=== PATIENT | female | born 1950 | race Caucasian/White ===

== ENCOUNTER 2016-08-06 07:30 | Inpatient (IN) | payer OTHER ==
[2016-07-30 11:06] VITALS: BP 122/86
--- NOTE | 2016-08-01 13:31 | HPE ---
DATE OF ADMISSION: 08/09/2016 HISTORY OF PRESENT ILLNESS: This is a pleasant female with continuing symptomatic right knee osteoarthritis. She has consented for right total knee arthroplasty per Dr. Dmitry García. Medical optimization is scheduled this afternoon with Dr. Conde. X-rays are consistent with advanced osteoarthritis. ALLERGIES: Were listed as Ceftin and Augmentin although after further discussion, the patient states she simply had some GI upset with these medications and was told to mention them as an allergy. MEDICATIONS: List includes: - alendronate sodium 70 mg - naproxen 50 mg - diclofenac sodium 1% - lisinopril 20 mg - levothyroxine sodium 75 mcg - bupropion HCL ER 150 mg - Drisdol - calcium 600 plus D 600-400 - iron 325 (65 FE) mg - clobetasol propionate 0.05% - acyclovir 400 mg - multivitamins - glucosamine chondroitin 1500 complex - omeprazole 20 mg. MEDICAL PROBLEM LIST: Includes: Symptomatic right knee osteoarthritis. Hypertension. Depression. Thyroid disease. Gastroesophageal reflux disease (GERD). SURGICAL HISTORY: Positive for: section. Total hysterectomy. Hernia repair. Gastric bypass. Foot surgery. Breast surgery. FAMILY HISTORY: Noncontributory. SOCIAL HISTORY: She is a former smoker who quit years ago. Denies ethanol intake or illicit drugs. REVIEW OF SYSTEMS: Denies chest pain, shortness of breath, dyspnea on exertion, fever, chills, malaise, upper respiratory or urinary tract symptoms. PHYSICAL EXAMINATION: Height 5 feet 2-1/2 inches, weight 236 pounds, temperature 97.5, pulse 70, respirations 16, blood pressure 128/74. She is a pleasant well-developed, well-nourished obese female in no acute distress. Alert and oriented times three. Mood and affect are appropriate. She is ambulating with favoring of her left lower extremity and antalgia about right. Her right knee was examined. Skin temperature, color, sensory and motor within normal limits. She has tenderness to palpation about her medial joint line with crepitance through flexion and extension. Otherwise, a benign noninfectious looking limb. Bowel sounds times four, soft, nontender. Chest rises symmetrically. Lungs clear to auscultation. Neck supple. Negative JVD or bruits. Head normocephalic. LAB AND DIAGNOSTICS: Chest x-ray reviewed and showed mild stable bibasilar fibrotic change. No acute pulmonary disease. Stable exam as read by Dr. Hayden Mccarty through [facility], dictated 07/12/2016. EKG shows sinus rhythm as read by Dr. Franco through [facility]. Remaining labs were inspected. Leukocyte esterase +1, WBC urine auto 16, bacteria urine auto 2+. Urine culture one organism, E-coli greater than 100,000 colon count. AST/SGOT was 14, red blood count 3.98. ESR was slightly elevated 43. IMPRESSION: 1. Symptomatic right knee osteoarthritis. 2. Patient consented for a right total knee arthroplasty per Dr. Dmitry García. 3. Scheduled for medical optimization with Dr. Conde this afternoon. 4. tank erector to OR 2 grams IV Kefzol in OR. The patient's previously mentioned allergies were not seemingly allergies. 5. Five sequential compression devices (SCD) and thromboembolic deterrent stockings (TEDS) in OR. 6. Prescription was given for Bactrim DS one by mouth twice a day for urinary tract infection on lab results. MTDD
[~2016-08-06] VITALS: Ht 157.5 cm; Wt 106.1 kg
[~2016-08-06 07:30] MED LIST: BUPR150T22 PO; BUPR1TAB17 PO; CALC600T57 PO; CALCTAB68 PO; GLUC1CAP10 PO; GLUC250C5 PO; LISI-538 PO; MULT1TAB15 PO; MULTCAP PO; OMEP20CA3 PO; PERCOCET PO; TRAM50TA2 PO; ZEST20TA8 PO
[2016-08-09] MEDS ORDERED: BUPIVACAINE/EPIN 0.25% 30 ML VIAL As Ordered ONE (10:44)
[2016-08-09] MEDS ORDERED: TRANEXAMIC ACID 100 MG/ML 10ML VIAL As Ordered ONE (10:45)
[2016-08-09] MEDS ORDERED: ceFAZolin 1GM INJ (J0690) As Ordered ONE (10:45)
[2016-08-09] MEDS ORDERED: BUPIVACAINE HCL 0.25% 30 ML VIAL As Ordered ONE ×3 (10:45→10:50)
[2016-08-09] MEDS ORDERED: EPINEPHrine INJ 1 MG/ML 1ML VIAL/AMP As Ordered ONE (10:46)
[2016-08-09] MEDS ORDERED: LR 1,000 ML IV SCH ×3 (11:15→16:15)
[2016-08-09] MEDS ORDERED: PREGABALIN 75 MG CAP(LYRICA) PO ONE (11:30)
[2016-08-09] MEDS ORDERED: CelecoXIB 400 MG CAP PO ONE (11:30)
[2016-08-09] MEDS ORDERED: PERCOCET 5MG/325MG TAB PO ONE (11:30)
[2016-08-09] MEDS ORDERED: LEVO10VL IM (12:07)
[2016-08-09] MEDS ORDERED: MIDAZOLAM INJ 2 MG/2 ML VIAL (J2250) As Ordered ONE ×2 (12:13→13:46)
[2016-08-09] MEDS ORDERED: fentaNYL 100 MCG/2 ML INJECTION (J3010) As Ordered ONE ×2 (12:13→13:00)
[2016-08-09] MEDS: MIDAZOLAM INJ 2 MG/2 ML VIAL (J2250) IV PRN ×2 (12:55→13:05)
[2016-08-09] MEDS: fentaNYL 100 MCG/2 ML INJECTION (J3010) IV PRN ×2 (12:55→13:05)
[2016-08-09] MEDS ORDERED: CLINDAMYCIN INJ 900MG/6ML VIAL As Ordered ONE (13:21)
[2016-08-09] MEDS ORDERED: fentaNYL 100 MCG/2 ML INJECTION (J3010) IV PRN ×3 (13:30→16:15)
[2016-08-09] MEDS ORDERED: PROPOFOL 200 MG/20 ML VIAL As Ordered ONE ×2 (13:46→15:22)
[2016-08-09] MEDS ORDERED: ceFAZolin 1GM INJ (J0690) IR ONE (14:10)
[2016-08-09] MEDS ORDERED: TRANEXAMIC ACID 100 MG/ML 10ML VIAL XX ONE (14:10)
[2016-08-09] MEDS ORDERED: BUPIVACAINE/EPIN 0.25% 30 ML VIAL XX ONE (14:10)
[2016-08-09] MEDS ORDERED: BUPIVACAINE HCL 0.25% 30 ML VIAL XX ONE (14:10)
[2016-08-09] MEDS ORDERED: EPINEPHrine INJ 1 MG/ML 1ML VIAL/AMP XX ONE (14:10)
[2016-08-09] MEDS ORDERED: fentaNYL 100 MCG/2 ML INJECTION (J3010) XX ONE (14:10)
[2016-08-09] MEDS ORDERED: BACITRACIN PWD 50,000 UNITS VIAL As Ordered ONE (14:18)
[2016-08-09] MEDS ORDERED: PHENYLephrine HCL 500 MCG/5 ML (100MCG/ML) SYRINGE (J2370) As Ordered ONE (14:20)
[2016-08-09] MEDS ORDERED: BACITRACIN PWD 50,000 UNITS VIAL IR ONE (14:23)
[2016-08-09] MEDS ORDERED: PATIENT IS CURRENTLY ON AN ON-Q PAIN BUSTER PAIN RELIEF SYSTEM XX SCH (16:15)
[2016-08-09] MEDS ORDERED: PERCOCET 5MG/325MG TAB PO PRN ×2 (16:15→16:30)
[2016-08-09] MEDS ORDERED: ONDANSETRON 4MG/2ML VIAL (J2405) IV PRN (16:15)
[2016-08-09] MEDS ORDERED: METOCLOPRAMIDE INJ 10MG/2ML VIAL (J2765) IV PRN (16:15)
[2016-08-09] MEDS ORDERED: HYDROmorphone HCL 1 MG/ML SYRINGE (J1170) IV PRN ×2 (16:15)
[2016-08-09] MEDS ORDERED: PROMETHAZINE INJ 25 MG/ML VIAL (J2550) IV PRN (16:30)
[2016-08-09] MEDS ORDERED: FLEET ENEMA PR PRN (16:30)
[2016-08-09] MEDS ORDERED: ACETAMINOPHEN TAB 650MG DOSE (2X325MG) PO PRN (16:30)
[2016-08-09] MEDS: D5W/0.45% SODIUM CHLORIDE 1,000 ML IV SCH (16:30)
[2016-08-09] MEDS ORDERED: WARFARIN SOD 2.5 MG TAB PO SCH (17:00)
[2016-08-09] MEDS ORDERED: WARFARIN SOD 1 MG TAB PO SCH (17:00)
[2016-08-09 17:15] VITALS: BP 117/61
--- NOTE | 2016-08-09 17:47 | CR.PDOC ---
[facility] Consultation Consultation DATE OF CONSULTATION: 08/09/16 REASON FOR CONSULTATION/CHIEF COMPLAINT: Medical comanagement HISTORY OF PRESENT ILLNESS: 66-year-old female past medical history of hypertension, depression, hypothyroidism, and GERD presented to [facility] with symptomatic right knee osteoarthritis and has subsequently undergone a total right knee arthroplasty. At this time, the patient states that she is feeling well and denies any acute complaints of fevers, chills, shortness breath, chest pain, palpitation, abdominal pain, any nausea/vomiting/ diarrhea. She reports that her right knee is feeling well, and the pain following surgery is well controlled with her current pain regimen. The hospitalist team has been consulted for co-medical management of the patient's chronic comorbidities. ALLERGIES: Please see below. HOME MEDICATIONS: Please see below. PAST MEDICAL HISTORY: 1. As noted in HPI PAST SURGICAL HISTORY: section. Total hysterectomy. Hernia repair. Gastric bypass. Foot surgery. Breast surgery FAMILY HISTORY: Noncontributory SOCIAL HISTORY: Denies tobacco use at this time, denies any illicit drug use. REVIEW OF SYSTEMS: 10 point review of systems negative unless otherwise specified in HPI. PHYSICAL EXAMINATION: VITAL SIGNS: Please see below. GENERAL APPEARANCE: . Awake, alert, in no acute distress HEENT: . Normocephalic, atraumatic RESPIRATORY: . Clear to auscultation bilaterally CARDIOVASCULAR: . Normal rate, normal rhythm ABDOMEN: . Soft, nontender, nondistended EXTREMITIES: . Right knee noted to be wrapped in surgical dressing. Range of motion limited secondary to recent surgery. LABORATORY DATA: Please see below. ASSESSMENT/PLAN: Status post right total knee arthroplasty Pain well controlled on current regimen Patient device to continue to use incentive spirometry DVT prophylaxis as per orthopedic team Hypertension Continue lisinopril Depression Currently well-controlled, with no suicidal or homicidal ideations Continue bupropion Hypothyroidism Continue levothyroxine GERD Continue PPI Vital Signs/I&O Vital Signs Date Time Temp Pulse Resp B/P Pulse Ox O2 Delivery O2 Flow Rate FiO2 08/09/16 16:35 97.6 76 122/59 95 08/09/16 16:10 16 Nasal Cannula 2 Allergies Coded Allergies: Cephalosporins (Unverified Adverse Reaction, Unknown, NAUSEA, 11/15/12) Clavulanic Acid (Unverified Adverse Reaction, Unknown, NAUSEA, 11/15/12) Penicillins (Unverified Adverse Reaction, Unknown, NAUSEA, 11/15/12) Home Medications Scheduled (Bupropion Hcl Er) 150 Mg Tab 150 MG PO DAILY (Reported) (Calcium 600 + D) + D Tab 1 D PO DAILY (Reported) (Glucosamine Chondroitin) 1 Cap Cap 1 CAP PO DAILY (Reported) (Calcium + D3 600-200 mg-Unit) 1 Tab Tab 1 TAB PO DAILY (Reported) (Multivitamin Women 50+) 1 Tab Tab 1 TAB PO DAILY (Reported) Bupropion HCl (Bupropion HCl ER) 150 Mg Tab 150 MG PO DAILY (Reported) Glucosamine Chondroitin (Glucosamine Chondroitin) 1 Cap Cap 1 CAP PO DAILY ( Reported) Lisinopril (Zestril) 20 Mg Tab 20 MG PO DAILY (Reported) Lisinopril (Lisinopril) 20 Mg Tab 20 MG PO DAILY (Reported) Multivitamins (Multivitamins) Cap 1 PO DAILY (Reported) Omeprazole (Omeprazole) 20 Mg Cap 20 MG PO DAILY (Reported) Omeprazole (Omeprazole) 20 Mg Cap 20 MG PO DAILY (Reported) Scheduled PRN Tramadol HCl (Tramadol HCl) 50 Mg Tab 50 MG PO PRN PRN PRN PAIN (Reported) Miscellaneous Medications Levothyroxine Sodium (Levothyroxine Sodium) 100 Mcg Inj 100 MCG IM (Reported) ENMA JAY MD Aug 09, 2016 17:47
[2016-08-09 18:15] VITALS: BP 129/70
[2016-08-09] MEDS: PERCOCET 5MG/325MG TAB PO PRN (19:08)
[2016-08-09 19:15] VITALS: BP 136/65
[2016-08-09 20:15] VITALS: BP 138/62
[2016-08-09] MEDS: CLINDAMYCIN 900 MG in APPROPRIATE DILUENT 1 EA IV SCH (20:26)
[2016-08-09 22:00] VITALS: BP 142/63
[2016-08-10] MEDS: PERCOCET 5MG/325MG TAB PO PRN ×5 (00:56→22:14)
[2016-08-10] MEDS: CLINDAMYCIN 900 MG in APPROPRIATE DILUENT 1 EA IV SCH (01:00)
[2016-08-10] MEDS: D5W/0.45% SODIUM CHLORIDE 1,000 ML IV SCH (01:00)
[2016-08-10 02:00] VITALS: BP 144/76
[2016-08-10] MEDS: LEVOTHYROXINE 0.075 MG TAB (75 MCG) PO SCH (05:30)
[2016-08-10 06:00] VITALS: BP 130/60
[2016-08-10 06:45] LABS: INR 1.28; MEAN CORPUSCULAR HEMOGLOBIN 30.5 pg (27.0-33.0); MEAN CORPUSCULAR HGB CONC 32.1 g/dl (32.0-36.5); MEAN CORPUSCULAR VOLUME 94.9 fl (80.0-96.0); RED CELL DISTRIBUTION WIDTH 13.4 % (11.5-14.5); WHITE BLOOD COUNT 7.6 K/mm3 (4.0-10.0)
[2016-08-10 06:57] LABS: ANION GAP 10 MEQ/L (8-16); BLOOD UREA NITROGEN 18 MG/DL (7-18); CALCIUM LEVEL 7.8 MG/DL (8.8-10.2); CARBON DIOXIDE LEVEL 21 MEQ/L (21-32); CHLORIDE LEVEL 103 MEQ/L (98-107); CREATININE FOR GFR 0.81 MG/DL (0.55-1.02); GLOMERULAR FILTRATION RATE > 60.0 (>45); GLUCOSE, FASTING 144 MG/DL (80-110); MAGNESIUM LEVEL 2.2 MG/DL (1.8-2.4); SODIUM LEVEL 134 MEQ/L (136-145)
[2016-08-10] MEDS: SENOKOT S TAB PO SCH ×2 (09:00→20:31)
[2016-08-10] MEDS: OMEPRAZOLE 20 MG CAP PO SCH (09:00)
[2016-08-10] MEDS: buPROPion **XL** TABLET 150MG (WELLBUTRIN XL) PO SCH (09:00)
[2016-08-10] MEDS: MOM 30ML SUSPENSION UDC PO SCH (09:00)
[2016-08-10] MEDS: MIRALAX *UNIT DOSE* 17GM PACKET PO SCH (09:00)
[2016-08-10] MEDS: LISINOPRIL 20 MG TAB PO SCH (09:00)
--- NOTE | 2016-08-10 09:25 | REP ---
Clinical: Status post arthroplasty. Technique: AP and cross-table lateral views. Findings: The patient is status post right knee replacement with normal positioning and appearance to the femoral and tibial components. Overlying postsurgical changes appreciated. Impression: Satisfactory right knee replacement radiographs. Signed by Milton Trejo MD 08/10/2016 09:16 A
[2016-08-10 10:00] VITALS: BP 138/62
--- NOTE | 2016-08-10 12:41 | IPNPDOC ---
Assessment/Plan Date Seen The patient was seen on 08/10/16. Problems Problems: (1) S/P total knee arthroplasty Status: Acute Problem Text: had elective total knee arthroplasty for advanced osteoarthritis of the right knee pain control and dvt prophylaxis as per primary team. (2) Hypertension Status: Chronic Problem Text: continue lisinopril (3) Hypothyroid Status: Chronic Problem Text: continue synthroid (4) Depression Status: Chronic Problem Text: continue home meds. Plan / VTE VTE Prophylaxis Ordered?: Yes Subjective Review of Systems CC/HPI The patient is a 66-year-old female admitted with a reason for visit of Arthritis Right Knee. Events since last encounter no complaints this am . no nausea or vomiting or diarrhea, no chest pain or sob. Objective Vital Signs/I&O Vital Signs Date Time Temp Pulse Resp B/P Pulse Ox O2 Delivery O2 Flow Rate FiO2 08/10/16 10:29 20 08/10/16 10:00 97.5 98 138/62 94 Nasal Cannula 2.0 I&O- Last 24 Hours up to 6 AM 08/10/16 06:00 Intake Total 2180 ml Output Total 995 ml Balance 1185 ml Laboratory Data Labs 24H Laboratory Tests 2 08/10/16 06:08: Anion Gap 10, Blood Urea Nitrogen 18, Creatinine 0.81, Sodium Level 134L, Potassium Level 5.0, Chloride Level 103, Carbon Dioxide Level 21, Calcium Level 7.8L, Glomerular Filtration Rate > 60.0, Magnesium Level 2.2, Prothromb Time International Ratio 1.28, Prothrombin Time 16.1H CBC/BMP Laboratory Tests 08/10/16 06:08 Calcium Level 7.8 L, Red Blood Count 3.44 L, Mean Corpuscular Volume 94.9, Mean Corpuscular Hemoglobin 30.5, Mean Corpuscular Hemoglobin Concent 32.1, Red Cell Distribution Width 13.4 TAWANNA MARROQUIN MD Aug 10, 2016 12:41
[2016-08-10 14:00] VITALS: BP 129/57
[2016-08-10] MEDS ORDERED: WARFARIN SOD 5 MG TAB PO SCH (17:00)
[2016-08-10 22:00] VITALS: BP 144/72
[2016-08-11] MEDS: PERCOCET 5MG/325MG TAB PO PRN ×3 (01:56→10:28)
[2016-08-11] MEDS: LEVOTHYROXINE 0.075 MG TAB (75 MCG) PO SCH (05:50)
[2016-08-11 06:00] VITALS: BP 148/74
[2016-08-11 06:58] LABS: INR 1.9
[2016-08-11] MEDS ORDERED: COUM2.5T11 PO (07:15)
[2016-08-11] MEDS ORDERED: PERC5TAB6 PO (07:15)
[2016-08-11 08:19] VITALS: BP 148/74
[2016-08-11] MEDS: SENOKOT S TAB PO SCH (08:19)
[2016-08-11] MEDS: MIRALAX *UNIT DOSE* 17GM PACKET PO SCH (08:19)
[2016-08-11] MEDS: MOM 30ML SUSPENSION UDC PO SCH (08:19)
[2016-08-11] MEDS: OMEPRAZOLE 20 MG CAP PO SCH (08:19)
[2016-08-11] MEDS: buPROPion **XL** TABLET 150MG (WELLBUTRIN XL) PO SCH (08:19)
[2016-08-11] MEDS: LISINOPRIL 20 MG TAB PO SCH (08:19)
[2016-08-11] MEDS ORDERED: CelecoXIB (CeleBREX) 100 MG CAP PO ONE (09:00)
[2016-08-11] MEDS ORDERED: LIDOCAINE 1% MDV 20ML VIAL ONE (12:05)
[2016-08-11] MEDS ORDERED: EPINEPHrine INJ 1 MG/ML 1ML VIAL/AMP ONE (12:05)
[2016-08-11] MEDS ORDERED: ROPIvacaine 0.5% 30 ML INJECTION (J2795) ONE (12:05)
[2016-08-11] MEDS ORDERED: WARFARIN SOD 2.5 MG TAB PO ONE (17:00)
--- NOTE | 2016-08-13 11:47 | DSES ---
DATE OF ADMISSION: 08/09/2016 DATE OF DISCHARGE: 08/11/2016 ADMISSION DIAGNOSIS: Right knee arthritis. OTHER DIAGNOSES: Hypertension, depression, hypothyroidism, and gastroesophageal reflux disease. DISCHARGE DIAGNOSIS: Right knee arthritis status post right total knee arthroplasty. OPERATION PERFORMED: Right total knee arthroplasty. HISTORY: This is a 66-year-old female with progressively worsening right knee pain and stiffness. The patient was admitted for elective right knee replacement. HOSPITAL COURSE: The patient was admitted on the day of surgery and underwent right knee arthroplasty, which was uneventful. She did well in the postoperative period and her hospital course was without complications. The patient was up with physical therapy per their protocol, and her pain was controlled. On the day of discharge, the patient was doing well. She was weightbearing as tolerated, will move her knee to prevent stiffness, will use adjusted dose Coumadin and NOBLE stockings for 30 days postoperatively for deep vein thrombosis (DVT) prophylaxis, and she will use oral medications for pain control. Also, she will follow in the office in 2 weeks for staple removal, will resume preoperative medications and diet. She was given instructions for wound monitoring and activity limitations. Please refer to the medical record for further detail.
--- NOTE | 2016-08-14 06:37 | RO ---
DATE OF PROCEDURE: 08/09/2016 PREOPERATIVE DIAGNOSIS: Osteoarthritis of the right knee. POSTOPERATIVE DIAGNOSIS: Osteoarthritis of the right knee. PROCEDURE PERFORMED: Posterior stabilized right total knee replacement. SURGEON: Dmitry García MD QUALITATIVE EXECUTIVE RESEARCHER: BUNNY Abdullahi ANESTHESIA: Spinal with block, Dr. Lau. ESTIMATED BLOOD LOSS: Less than 60 mL, replaced with crystalloid. No complications. Tourniquet was inflated 275 mmHg for 77 minutes. COMPONENTS USED: Include DePuy PFC posterior stabilized knee system, size 3 femoral component, size 3 tibial component, size 12.5 polyethylene spacer, 35 mm patella button. Utilized tobramycin bone cement. INDICATIONS: Progressive discomfort in the right knee, imaging study evidence of severe osteoarthritic change of the right knee. DESCRIPTION OF PROCEDURE: Identified in the holding area, site and side verified. Brought to the operating room. Site and side was again verified. Block had been placed in the holding area. Spinal was placed in the operating room. Patient was positioned on the operating room table for exposure of the right knee for arthroplasty. Bump under the right hip. Tourniquet was high on the right thigh. She was sterilely prepped and draped in the usual fashion for exposure. The leg was elevated and the tourniquet inflated. The incision was outlined with a marking pen, infiltrated with 0.25% Marcaine with epinephrine, and made with a #10 blade knife, developed down through skin and subcuticular tissues to the extensor mechanism. Medial parapatellar arthrotomy was accomplished. The knee placed in the flexed position in the knee positioner. The femoral canal was opened using a canal opening drill, and the distal femoral alignment guide was secured using two non-threaded pins. The intramedullary component was removed, and BUNNY Mckeon made the distal femoral cut from her position. We then removed the distal femoral cutting guide, and Hohmann retractors were placed. We then utilized the AP sizing guide. The medial release was accomplished around the tibia using the sharp knife and the osteotome. Next, AP sizing guide predicted a size 3, and a 3-degree rotation alignment jig was pinned into place and then the guides were removed. The pins were retained. The 4-in-1 cutting block was secured using threaded pins. Oscillating saw was utilized to make the anterior, posterior, and chamfer cuts. This guide was then removed. Attention was turned to the tibia. Infrapatellar fat pad was removed. Anterior cruciate ligament was released. The anterior horn to the meniscus was released with the patella in everted position. The external tibial alignment guide was applied and pinned into place, minus 4 mm off the medial tibial plateau. I verified the alignment using the drop guide. Next, once this was accomplished, Hohmann retractors were replaced protecting the collateral ligaments. Oscillating saw was utilized to make the proximal tibial cut. Once the proximal tibial cut was made and the proximal tibia was removed, the knee was placed in the extended position and the extension and flexion blocks were placed. A 12.5 mm block seemed to fit appropriately in flexion as well as extension. Full extension was achieved. Next, the distal tibial trial component was then placed to verify the tibia for a size 3. Next, the distal femoral notch cutting guide was installed, and the femoral notch cut for the posterior stabilized component was made using the oscillating saw. Rasp was utilized in the femoral notch. Next, femoral trial size 3 was installed. Tibial trial size 3 was installed with a 12.5 mm spacer. The knee was placed through a range of motion, and full extension was achieved. Rotational alignment was marked. These trials were then removed. A tibial trial was again placed with the knee subluxed with the posterior retractor. Collaterals were protected with the Hohmann retractors. The guide was outlined with the rotation charis, pinned into place. I then utilized the intramedullary tibial reamer followed by the tibial broach. Once this was accomplished, all components had been removed. Ms. Mckeon stepped to the back table and prepared the bone cement while I irrigated and positioned the knee. The bone surfaces were dried and when the cement was the appropriate consistency, cement was applied to the proximal tibia and the tibial component was cemented into place, tamped down with a nylon impactor. Excess cement was cleared using curettes. Next, the femoral component was installed in a similar manner, tamped into place. Next, the excess cement was cleared. 12.5 mm non-trial spacer was installed. The knee was placed in extension with the patella everted. Posterior patellar cut had been made and sized for a 35 mm patella button. The posterior patella was exposed, cement was applied, and the 35 mm button was installed and secured using a nylon patellar clamp. Excess cement was cleared with curettes. Next, cement was allowed to harden while we irrigated with pulse lavage. Bacitracin was utilized in irrigant because of the patient's PENICILLIN ALLERGY. Next, we also placed 100 mL of TXA as a hemostatic agent. This was allowed to rest for 1 minute. Next, once the cement had hardened to the appropriate consistency, the patella clamp was removed. The arthrotomy was closed with #1 Vicryl followed by a running STRATAFIX suture. Next, deep dermis was then reapproximated using interrupted stitch, and mary were utilized on skin. Tourniquet was deflated a 77 minutes. Sterile dressing was applied. Next, the PainBuster pump was placed superolaterally. Once the dressing was applied, patient was then moved to the hospital bed in good condition. I was present and participated in the entirety of the case. BUNNY Mckeon was present and participated in the capacity of visitor service assistant. For further details, please refer to medical record.
== END 2016-08-11 12:06 | disposition home health service (06) | DRG 470 ==
LOC: M OR 08-09 11:07 → M MS5PR 08-09 16:55
PROVIDERS: ADMIT Orthopaedic Surgery; ATTEND Orthopaedic Surgery
PROC: 0SRC0J9 Replacement of Right Knee Joint with Synthetic Substitute, Cemented, Open Approach (ICD-10-PCS; principal; 2016-08-09 13:00)
DX: M17.11 Unilateral primary osteoarthritis, right knee (principal); Z68.41 Body mass index [BMI] 40.0-44.9, adult; I10 Essential (primary) hypertension; F32.9 Major depressive disorder, single episode, unspecified; K21.9 Gastro-esophageal reflux disease without esophagitis; E66.9 Obesity, unspecified; R26.2 Difficulty in walking, not elsewhere classified; E03.9 Hypothyroidism, unspecified; Z98.84 Bariatric surgery status; Z90.710 Acquired absence of both cervix and uterus; Z79.899 Other long term (current) drug therapy; Z87.891 Personal history of nicotine dependence

== ENCOUNTER → 2016-08-16 | Outpatient (REF) | payer OTHER ==
[~2016-08-16] MED LIST changes: +COUM2.5T11 PO; +LEVO10VL IM; +PERC5TAB6 PO
[2016-08-16 14:40] LABS: INR 2.04
== END | disposition home or self-care (01) ==
LOC: M LAB REF 14:18
PROVIDERS: ATTEND Nurse Practitioner Family
DX: Z51.81 Encounter for therapeutic drug level monitoring (principal); Z79.01 Long term (current) use of anticoagulants

== ENCOUNTER → 2016-08-22 | Outpatient (REF) | payer OTHER ==
[2016-08-22 12:47] LABS: INR 1.6
== END | disposition home or self-care (01) ==
LOC: M LABDRAW1 11:56
PROVIDERS: ATTEND Orthopaedic Surgery
DX: Z96.651 Presence of right artificial knee joint (principal)

== ENCOUNTER → 2016-10-31 | Outpatient (REF) | payer OTHER ==
[2016-10-31 15:15] LABS: MEAN CORPUSCULAR HEMOGLOBIN 30.5 pg (27.0-33.0); MEAN CORPUSCULAR HGB CONC 31.7 g/dl (32.0-36.5); MEAN CORPUSCULAR VOLUME 96.2 fl (80.0-96.0); RED CELL DISTRIBUTION WIDTH 13.7 % (11.5-14.5); WHITE BLOOD COUNT 3.9 K/mm3 (4.0-10.0)
[2016-10-31 16:02] LABS: ALBUMIN 3.9 GM/DL (3.2-5.2); ALBUMIN/GLOBULIN RATIO 1.63 (1.00-1.93); ALKALINE PHOSPHATASE 57 U/L (45-117); ALT/SGPT 16 U/L (12-78); ANION GAP 5 MEQ/L (8-16); AST/SGOT 12 U/L (15-37); BILIRUBIN,TOTAL 0.3 MG/DL (0.2-1.0); BLOOD UREA NITROGEN 19 MG/DL (7-18); CALCIUM LEVEL 8.4 MG/DL (8.8-10.2); CARBON DIOXIDE LEVEL 28 MEQ/L (21-32); CHLORIDE LEVEL 107 MEQ/L (98-107); CHOLESTEROL LEVEL 205 MG/DL (<200); CREATININE FOR GFR 0.84 MG/DL (0.55-1.02); FERRITIN 18 NG/ML (8-252); GLOMERULAR FILTRATION RATE > 60.0 (>45); GLUCOSE, FASTING 82 MG/DL (80-110); PERCENT SATURATION 18.9 % (13.2-37.4); POTASSIUM SERUM 4.9 MEQ/L (3.5-5.1); SODIUM LEVEL 140 MEQ/L (136-145); TOTAL IRON BINDING CAPACITY 344 UG/DL (250-450); TOTAL PROTEIN 6.3 GM/DL (6.4-8.2); TRIGLYCERIDES LEVEL 93 MG/DL (<150)
== END ==
LOC: M SFHCLACO 08:47
PROVIDERS: ATTEND Physician Assistant
DX: D50.9 Iron deficiency anemia, unspecified (principal); E03.9 Hypothyroidism, unspecified; E55.9 Vitamin D deficiency, unspecified; I10 Essential (primary) hypertension

== ENCOUNTER → 2017-03-11 | Outpatient (CLI) | payer OTHER ==
[~2017-03-11] MED LIST changes: -BUPR1TAB17 PO; +BUPR1TAB53 PO; -COUM2.5T11 PO; +COUM2.5T17 PO; +PERC5TAB12 PO; -PERC5TAB6 PO
--- NOTE | 2017-03-11 16:25 | REPMRS ---
Patient History The patient states she had a clinical breast exam in 11/2016. Patient is postmenopausal. Family history of ovarian cancer in maternal aunt under age 50. Benign excisional biopsy of the left breast, 1982. Digital Woman Screen Mammo: March 11, 2017 - Exam #: [id number] Bilateral CC and MLO view(s) were taken. Technologist: Evi Calhoun, Technologist Prior study comparison: November 08, 2014, digital woman screen mammo performed at [facility]. June 20, 2011, bilateral digital mammo screening bilat performed at [facility] to [facility]. FINDINGS: There are scattered fibroglandular densities. There has been no change in the appearance of the mammogram from the prior studies. There is a mild amount of residual fibroglandular tissue which is fairly symmetric. There is no interval development of dominant mass, architectural distortion, or clustered microcalcification suggestive of malignancy. There is a benign appearing intramammary node in the upper outer quadrant of the right breast. Scattered lymph nodes are seen in the axillae. There are scattered, small, benign calcifications of doubtful clinical significance. No significant changes when compared with prior studies. ASSESSMENT: BI-RADS/ACR category 2 mammogram. Benign finding(s). Recommendation Routine screening mammogram in 1 year (for women over age 40). This mammogram was interpreted with the aid of an FDA-approved computer-aided dectection system. A. Negative x-ray reports should not delay biopsy if a dominant or clinically suspicious mass is present. B. Four to eight percent of cancers are not identified by mammography. C. Adenosis and dense breast may obscure an underlying neoplasm. Electronically Signed By: Bhavesh Painting MD 03/11/17 [id number]
== END ==
LOC: M WHC 13:27
PROVIDERS: ATTEND Physician Assistant
DX: Z12.31 Encounter for screening mammogram for malignant neoplasm of breast (principal)

== ENCOUNTER → 2017-05-06 | Outpatient (REF) | payer OTHER ==
[2017-05-06 15:06] LABS: MEAN CORPUSCULAR HEMOGLOBIN 31.7 pg (27.0-33.0); MEAN CORPUSCULAR HGB CONC 31.9 g/dl (32.0-36.5); MEAN CORPUSCULAR VOLUME 99.4 fl (80.0-96.0); RED CELL DISTRIBUTION WIDTH 13.4 % (11.5-14.5); WHITE BLOOD COUNT 4.8 10^3/uL (4.0-10.0)
[2017-05-06 15:42] LABS: ALBUMIN 3.9 GM/DL (3.2-5.2); ALBUMIN/GLOBULIN RATIO 1.63 (1.00-1.93); ALKALINE PHOSPHATASE 51 U/L (45-117); ALT/SGPT 20 U/L (12-78); ANION GAP 8 MEQ/L (8-16); AST/SGOT 9 U/L (15-37); BILIRUBIN,TOTAL 0.4 MG/DL (0.2-1.0); BLOOD UREA NITROGEN 20 MG/DL (7-18); CALCIUM LEVEL 8.6 MG/DL (8.8-10.2); CARBON DIOXIDE LEVEL 23 MEQ/L (21-32); CHLORIDE LEVEL 109 MEQ/L (98-107); FERRITIN 30 NG/ML (8-252); GLOMERULAR FILTRATION RATE > 60.0 (>45); GLUCOSE, FASTING 85 MG/DL (80-110); PERCENT SATURATION 12.3 % (13.2-45.0); SODIUM LEVEL 140 MEQ/L (136-145); TOTAL IRON BINDING CAPACITY 302 UG/DL (250-450); TOTAL PROTEIN 6.3 GM/DL (6.4-8.2)
== END ==
LOC: M SFHCLACO 08:44
PROVIDERS: ATTEND Physician Assistant
DX: D50.9 Iron deficiency anemia, unspecified (principal); I10 Essential (primary) hypertension; E03.9 Hypothyroidism, unspecified; E55.9 Vitamin D deficiency, unspecified

== ENCOUNTER → 2017-11-13 | Outpatient (REF) | payer MEDICARE ==
[2017-11-13 14:44] LABS: HEMATOCRIT 40.8 % (36.0-47.0); HEMOGLOBIN 13.1 g/dl (12.0-15.5); MEAN CORPUSCULAR HEMOGLOBIN 30.8 pg (27.0-33.0); MEAN CORPUSCULAR HGB CONC 32.1 g/dl (32.0-36.5); PLATELET COUNT, AUTOMATED 214 10^3/uL (150-450); RED BLOOD COUNT 4.25 10^6/uL (4.00-5.40); WHITE BLOOD COUNT 3.4 10^3/uL (4.0-10.0)
[2017-11-13 15:04] LABS: TOTAL 25(OH) VITAMIN D 63.8 NG/ML (30.0-100.0)
[2017-11-13 15:09] LABS: ALBUMIN 4.2 GM/DL (3.2-5.2); ALBUMIN/GLOBULIN RATIO 1.56 (1.00-1.93); ALKALINE PHOSPHATASE 55 U/L (45-117); ALT/SGPT 16 U/L (12-78); ANION GAP 7 MEQ/L (8-16); AST/SGOT 13 U/L (7-37); BILIRUBIN,TOTAL 0.4 MG/DL (0.2-1.0); BLOOD UREA NITROGEN 12 MG/DL (7-18); CALCIUM LEVEL 8.6 MG/DL (8.8-10.2); CARBON DIOXIDE LEVEL 27 MEQ/L (21-32); CHLORIDE LEVEL 106 MEQ/L (98-107); CHOLESTEROL LEVEL 192 MG/DL (<200); CHOLESTEROL RISK RATIO 3.254 (<5); CREATININE FOR GFR 0.73 MG/DL (0.55-1.30); FERRITIN 38 NG/ML (8-252); GLOMERULAR FILTRATION RATE > 60.0 (>45); GLUCOSE, FASTING 86 MG/DL (70-100); HDL CHOLESTEROL 59 MG/DL (>40); IRON (FE) 54 UG/DL (50-170); LDL CHOLESTEROL 117.8 MG/DL (<100); NON-HDL-C 133 MG/DL; PERCENT SATURATION 17.6 % (13.2-45.0); POTASSIUM SERUM 4.5 MEQ/L (3.5-5.1); SODIUM LEVEL 140 MEQ/L (136-145); TOTAL IRON BINDING CAPACITY 307 UG/DL (250-450); TOTAL PROTEIN 6.9 GM/DL (6.4-8.2); TRIGLYCERIDES LEVEL 76 MG/DL (<150)
== END ==
LOC: M SFHCLACO 08:35
DX: D50.9 Iron deficiency anemia, unspecified (principal); I10 Essential (primary) hypertension; E03.9 Hypothyroidism, unspecified; E78.2 Mixed hyperlipidemia; E55.9 Vitamin D deficiency, unspecified
CPT/HCPCS: 83550

== ENCOUNTER → 2018-04-02 | Outpatient (CLI) | payer MEDICARE | LOC: M WHC 06:59 | DX: Z12.31 Encounter for screening mammogram for malignant neoplasm of breast (principal); Z98.890 Other specified postprocedural states | CPT/HCPCS: 77067 ==

== ENCOUNTER → 2018-05-12 | Outpatient (REF) | payer MEDICARE | LOC: M LAB REF 18:38 | DX: L57.0 Actinic keratosis (principal) | CPT/HCPCS: 88305 ==

== ENCOUNTER → 2018-05-13 | Outpatient (REF) | payer MEDICARE ==
[2018-05-13 18:54] LABS: HEMATOCRIT 38.7 % (36.0-47.0); HEMOGLOBIN 12.2 g/dl (12.0-15.5); MEAN CORPUSCULAR HGB CONC 31.5 g/dl (32.0-36.5); MEAN CORPUSCULAR VOLUME 98.2 fl (80.0-96.0); PLATELET COUNT, AUTOMATED 271 10^3/uL (150-450); RED BLOOD COUNT 3.94 10^6/uL (4.00-5.40); RED CELL DISTRIBUTION WIDTH 13.7 % (11.5-14.5); WHITE BLOOD COUNT 5.5 10^3/uL (4.0-10.0)
[2018-05-13 19:08] LABS: ALKALINE PHOSPHATASE 60 U/L (45-117); ALT/SGPT 22 U/L (12-78); ANION GAP 7 MEQ/L (8-16); AST/SGOT 19 U/L (7-37); BILIRUBIN,TOTAL 0.4 MG/DL (0.2-1.0); BLOOD UREA NITROGEN 16 MG/DL (7-18); CALCIUM LEVEL 8.5 MG/DL (8.8-10.2); CARBON DIOXIDE LEVEL 27 MEQ/L (21-32); CHLORIDE LEVEL 103 MEQ/L (98-107); CREATININE FOR GFR 0.85 MG/DL (0.55-1.30); GLOMERULAR FILTRATION RATE > 60.0 (>45); GLUCOSE, FASTING 102 MG/DL (70-100); POTASSIUM SERUM 4.2 MEQ/L (3.5-5.1); SODIUM LEVEL 137 MEQ/L (136-145); TRIGLYCERIDES LEVEL 94 MG/DL (<150)
[2018-05-13 19:09] LABS: ALBUMIN 3.9 GM/DL (3.2-5.2); CHOLESTEROL LEVEL 188 MG/DL (<200); CHOLESTEROL RISK RATIO 2.848 (<5); FERRITIN 76 NG/ML (8-252); HDL CHOLESTEROL 66 MG/DL (>40); IRON (FE) 82 UG/DL (50-170); LDL CHOLESTEROL 103 MG/DL (<100); NON-HDL-C 122 MG/DL; PERCENT SATURATION 29.3 % (13.2-45.0); TOTAL IRON BINDING CAPACITY 280 UG/DL (250-450); TOTAL PROTEIN 6.9 GM/DL (6.4-8.2)
[2018-05-13 19:11] LABS: TOTAL 25(OH) VITAMIN D 86.7 NG/ML (30.0-100.0)
== END ==
LOC: M SFHCADAM 13:39
DX: D50.9 Iron deficiency anemia, unspecified (principal); I10 Essential (primary) hypertension; E03.9 Hypothyroidism, unspecified; E78.2 Mixed hyperlipidemia; E55.9 Vitamin D deficiency, unspecified
CPT/HCPCS: 83550

== ENCOUNTER → 2018-10-09 | Outpatient (REF) | payer MEDICARE | LOC: M SFHCADAM 08:50 | PROVIDERS: ATTEND Family Medicine | DX: Z53.9 Procedure and treatment not carried out, unspecified reason (principal); I10 Essential (primary) hypertension; E03.9 Hypothyroidism, unspecified; D50.9 Iron deficiency anemia, unspecified ==

== ENCOUNTER → 2018-10-10 | Outpatient (CLI) | payer MEDICARE ==
[2018-10-10 11:16] LABS: BASO % 1.3 % (0.0-1.0); EOS # 0.1 10^3/uL (0.0-0.50); EOS % 1.6 % (0.0-3.0); HEMATOCRIT 38.6 % (36.0-47.0); HEMOGLOBIN 12.4 g/dl (12.0-15.5); LYMPH # 1.2 10^3/uL (1.5-4.5); LYMPH % 38.6 % (24.0-44.0); MEAN CORPUSCULAR HEMOGLOBIN 32.4 pg (27.0-33.0); MEAN CORPUSCULAR HGB CONC 32.1 g/dl (32.0-36.5); MEAN CORPUSCULAR VOLUME 100.8 fl (80.0-96.0); MONO # 0.3 10^3/uL (0.0-0.8); NEUTROPHILS # 1.6 10^3/uL (1.8-7.7); NEUTROPHILS % 50.2 % (36.0-66.0); PLATELET COUNT, AUTOMATED 213 10^3/uL (150-450); RED BLOOD COUNT 3.83 10^6/uL (4.00-5.40); WHITE BLOOD COUNT 3.1 10^3/uL (4.0-10.0)
[2018-10-10 11:28] LABS: ALBUMIN 3.8 GM/DL (3.2-5.2); ALT/SGPT 21 U/L (12-78); BILIRUBIN,TOTAL 0.3 MG/DL (0.2-1.0); BLOOD UREA NITROGEN 17 MG/DL (7-18); CALCIUM LEVEL 8.4 MG/DL (8.8-10.2); CARBON DIOXIDE LEVEL 29 MEQ/L (21-32); CHLORIDE LEVEL 107 MEQ/L (98-107); CREATININE FOR GFR 0.66 MG/DL (0.55-1.30); FREE T4 1.16 NG/DL (0.76-1.46); GLOMERULAR FILTRATION RATE > 60.0 (>45); GLUCOSE, FASTING 76 MG/DL (70-100); MAGNESIUM LEVEL 2.2 MG/DL (1.8-2.4); POTASSIUM SERUM 4.3 MEQ/L (3.5-5.1); SODIUM LEVEL 142 MEQ/L (136-145); TOTAL PROTEIN 6.5 GM/DL (6.4-8.2)
[2018-10-10 11:34] LABS: INR 0.95; PROTHROMBIN TIME 12.8 SECONDS (12.1-14.4)
[2018-10-10 11:35] LABS: PARTIAL THROMBOPLASTIN TIME 31.8 SECONDS (25.4-37.6)
[2018-10-10 12:48] LABS: HEMOGLOBIN A1c 5.2 %
== END ==
LOC: M SFHCADAM 08:11 → M LABDRWAD 08:11
PROVIDERS: ATTEND Physician Assistant
DX: I10 Essential (primary) hypertension (principal); E03.9 Hypothyroidism, unspecified; D50.9 Iron deficiency anemia, unspecified; Z79.899 Other long term (current) drug therapy; Z79.01 Long term (current) use of anticoagulants

== ENCOUNTER → 2018-10-10 | Outpatient (CLI) | payer MEDICARE ==
--- NOTE | 2018-10-10 09:29 | REP ---
Clinical: Hypertension. Technique: PA and lateral. Comparison: 07/30/2016. Findings: Mediastinum and cardiac silhouette are normal. Lung avery demonstrate chronic stable interstitial changes. No acute consolidation, effusion, or pneumothorax. Skeletal structures demonstrate age-related changes. Impression: Chronic stable changes. No acute cardiopulmonary process. Electronically Signed by Milton Trejo MD 10/10/2018 09:21 A
== END ==
LOC: M ADAMS 08:16
PROVIDERS: ATTEND Physician Assistant
DX: I10 Essential (primary) hypertension (principal)

== ENCOUNTER → 2018-11-03 | Outpatient (REF) | payer MEDICARE ==
[2018-11-03 10:16] LABS: BASO # 0.1 10^3/uL (0.0-0.2); BASO % 1.8 % (0.0-1.0); EOS % 1.2 % (0.0-3.0); HEMOGLOBIN 11.9 g/dl (12.0-15.5); LYMPH # 1.1 10^3/uL (1.5-4.5); MEAN CORPUSCULAR HEMOGLOBIN 31.5 pg (27.0-33.0); MEAN CORPUSCULAR HGB CONC 32.2 g/dl (32.0-36.5); MEAN CORPUSCULAR VOLUME 97.9 fl (80.0-96.0); MONO # 0.3 10^3/uL (0.0-0.8); MONO % 8.9 % (0.0-5.0); NEUTROPHILS # 1.8 10^3/uL (1.8-7.7); NEUTROPHILS % 54.1 % (36.0-66.0); PLATELET COUNT, AUTOMATED 229 10^3/uL (150-450); RED BLOOD COUNT 3.78 10^6/uL (4.00-5.40); WHITE BLOOD COUNT 3.3 10^3/uL (4.0-10.0)
[2018-11-03 10:26] LABS: INR 1.02; PROTHROMBIN TIME 13.5 SECONDS (12.1-14.4)
[2018-11-03 10:27] LABS: PARTIAL THROMBOPLASTIN TIME 31.5 SECONDS (25.4-37.6)
[2018-11-03 10:34] LABS: HEMOGLOBIN A1c 5.1 %
[2018-11-03 10:51] LABS: ALBUMIN 3.9 GM/DL (3.2-5.2); ALT/SGPT 22 U/L (12-78); BILIRUBIN,TOTAL 0.3 MG/DL (0.2-1.0); BLOOD UREA NITROGEN 15 MG/DL (7-18); CARBON DIOXIDE LEVEL 30 MEQ/L (21-32); CHLORIDE LEVEL 105 MEQ/L (98-107); CREATININE FOR GFR 0.65 MG/DL (0.55-1.30); FREE T4 1.37 NG/DL (0.76-1.46); GLOMERULAR FILTRATION RATE > 60.0 (>45); GLUCOSE, FASTING 77 MG/DL (70-100); MAGNESIUM LEVEL 2.1 MG/DL (1.8-2.4); POTASSIUM SERUM 4.3 MEQ/L (3.5-5.1); SODIUM LEVEL 139 MEQ/L (136-145); TOTAL PROTEIN 6.4 GM/DL (6.4-8.2)
== END ==
LOC: M SFHCLACO 08:38 → M SFHCADAM 08:48
PROVIDERS: ATTEND Physician Assistant
DX: Z01.818 Encounter for other preprocedural examination (principal); I10 Essential (primary) hypertension; E03.9 Hypothyroidism, unspecified; D72.819 Decreased white blood cell count, unspecified; Z79.01 Long term (current) use of anticoagulants

== ENCOUNTER → 2019-05-11 | Outpatient (REF) | payer MEDICARE ==
[~2019-05-11] MED LIST changes: +ACET-683 PO; +ACET-897 PO; +ACYC1CAP20 PO; +ACYC400T PO; +ALEN70TA74 PO; +ALEV220T22 PO; +BENA25CA4 PO; +BUPR-365 PO; +CLOB0.0526 TOP; +CLOB0.0548 TOP; +DIPH25CA32 PO; +FERR32TA PO; +IRON27TA2 PO; +LEVO75TA4 PO; +LOSA50TA88 PO; +METO1TAB87 PO; +MULT1TAB10 PO; +OMEP1CAP73 PO; +OXYC1TAB23 PO; +RANI75TA15 PO; +VITA50005 PO; +VITMTA PO
[2019-05-11 13:06] LABS: HEMATOCRIT 38.2 % (36.0-47.0); HEMOGLOBIN 12.1 g/dl (12.0-15.5); MEAN CORPUSCULAR HEMOGLOBIN 31.7 pg (27.0-33.0); MEAN CORPUSCULAR HGB CONC 31.7 g/dl (32.0-36.5); PLATELET COUNT, AUTOMATED 227 10^3/uL (150-450); RED BLOOD COUNT 3.82 10^6/uL (4.00-5.40); WHITE BLOOD COUNT 4.2 10^3/uL (4.0-10.0)
[2019-05-11 13:32] LABS: TOTAL 25(OH) VITAMIN D 76.9 NG/ML (30.0-100.0)
[2019-05-11 14:00] LABS: ALBUMIN 3.8 GM/DL (3.2-5.2); ALT/SGPT 23 U/L (12-78); BILIRUBIN,TOTAL 0.4 MG/DL (0.2-1.0); BLOOD UREA NITROGEN 14 MG/DL (7-18); CALCIUM LEVEL 8.9 MG/DL (8.8-10.2); CARBON DIOXIDE LEVEL 28 MEQ/L (21-32); CHLORIDE LEVEL 105 MEQ/L (98-107); CHOLESTEROL LEVEL 203 MG/DL (<200); CHOLESTEROL RISK RATIO 2.445 (<5); CREATININE FOR GFR 0.64 MG/DL (0.55-1.30); FERRITIN 59 NG/ML (8-252); GLOMERULAR FILTRATION RATE > 60.0 (>45); GLUCOSE, FASTING 68 MG/DL (70-100); HDL CHOLESTEROL 83 MG/DL (>40); IRON (FE) 65 UG/DL (50-170); LDL CHOLESTEROL 108 MG/DL (<100); NON-HDL-C 120 MG/DL; PERCENT SATURATION 21.7 % (13.2-45.0); POTASSIUM SERUM 4.2 MEQ/L (3.5-5.1); SODIUM LEVEL 139 MEQ/L (136-145); TOTAL IRON BINDING CAPACITY 299 UG/DL (250-450); TOTAL PROTEIN 6.4 GM/DL (6.4-8.2); TRIGLYCERIDES LEVEL 61 MG/DL (<150)
== END ==
LOC: M SFHCADAM 08:17
PROVIDERS: ATTEND Physician Assistant
DX: D50.9 Iron deficiency anemia, unspecified (principal); I10 Essential (primary) hypertension; E78.2 Mixed hyperlipidemia; E03.9 Hypothyroidism, unspecified; E55.9 Vitamin D deficiency, unspecified; Z79.899 Other long term (current) drug therapy

== ENCOUNTER 2019-07-29 22:54 | Inpatient (IN) | payer MEDICARE ==
[~2019-07-29] VITALS: Ht 160 cm; Wt 80.5 kg
[~2019-07-29 22:54] MED LIST changes: -ACET-897 PO; -ACYC400T PO; -ALEV220T22 PO; -BENA25CA4 PO; -BUPR-365 PO; -CLOB0.0548 TOP; -DIPH25CA32 PO; -FERR32TA PO; -METO1TAB87 PO; +OMEP-172 PO; -OMEP1CAP73 PO; -VITMTA PO
[2019-07-29] MEDS ORDERED: DIPH25CA32 PO (23:12)
[2019-07-29] MEDS ORDERED: ALEV220T22 PO (23:12)
[2019-07-29] MEDS ORDERED: METOPROLOL 5 MG/5 ML VIAL IV STA (23:15)
[2019-07-29 23:25] LABS: BASO % 0.2 % (0.0-1.0); HEMATOCRIT 40.4 % (36.0-47.0); HEMOGLOBIN 13.2 g/dl (12.0-15.5); LYMPH # 1.5 10^3/uL (1.5-5.0); LYMPH % 11.2 % (24.0-44.0); MEAN CORPUSCULAR HEMOGLOBIN 31.4 pg (27.0-33.0); MEAN CORPUSCULAR HGB CONC 32.7 g/dl (32.0-36.5); MEAN CORPUSCULAR VOLUME 96.2 fl (80.0-96.0); MONO # 0.8 10^3/uL (0.0-0.8); MONO % 6.2 % (0.0-5.0); NEUTROPHILS # 10.7 10^3/uL (1.5-8.5); NEUTROPHILS % 81.9 % (36.0-66.0); PLATELET COUNT, AUTOMATED 306 10^3/uL (150-450); WHITE BLOOD COUNT 13.1 10^3/uL (4.0-10.0)
[2019-07-29] MEDS ORDERED: METOPROLOL TART 25 MG TABLET PO ONE (23:30)
[2019-07-29] MEDS ORDERED: FLECAINIDE 50MG TABLET PO ONE (23:30)
[2019-07-30 00:02] LABS: CALCIUM LEVEL 8.7 MG/DL (8.8-10.2); CK-MB VALUE MASS 5.5 NG/ML (<3.6); CREATININE FOR GFR 1.09 MG/DL (0.55-1.30); FREE THYROXINE INDEX 4.7 % (1.3-4.8); GLOMERULAR FILTRATION RATE 53.3 (>45); MB/CK RELATIVE INDEX 6.11 (< OR =4); POTASSIUM SERUM 3.9 MEQ/L (3.5-5.1); THYROID STIMULATING HORMONE 2.55 uIU/ML (0.358-3.740); THYROXINE (T4) 11.1 UG/DL (4.5-12.0); TROPONIN I 1.27 NG/ML (< 0.10)
[2019-07-30] MEDS ORDERED: CLOPIDOGREL 300 MG TAB (PLAVIX) PO STA (00:07)
[2019-07-30] MEDS ORDERED: ASPIRIN 325 MG TAB PO ONE (00:15)
[2019-07-30 00:19] LABS: INR 1.15; PARTIAL THROMBOPLASTIN TIME 31.5 SECONDS (25.0-38.4); PROTHROMBIN TIME 14.5 SECONDS (11.8-14.0)
[2019-07-30] MEDS ORDERED: ACYC400T PO (00:56)
[2019-07-30] MEDS ORDERED: VITMTA PO (00:56)
[2019-07-30] MEDS ORDERED: FERR32TA PO (00:56)
[2019-07-30] MEDS ORDERED: ALEV220T22 PO (00:56)
[2019-07-30] MEDS ORDERED: BUPR-365 PO (00:56)
[2019-07-30] MEDS ORDERED: BENA25CA4 PO (00:56)
[2019-07-30] MEDS ORDERED: ACET-897 PO (00:56)
[2019-07-30] MEDS ORDERED: VITA50005 PO (00:56)
[2019-07-30] MEDS ORDERED: CLOB0.0548 TOP (00:56)
[2019-07-30 03:21] LABS: CK-MB VALUE MASS 4.3 NG/ML (<3.6); MB/CK RELATIVE INDEX 5.81 (< OR =4); TROPONIN I 1.13 NG/ML (< 0.10)
[2019-07-30 04:14] LABS: MAGNESIUM LEVEL 1.9 MG/DL (1.8-2.4)
[2019-07-30] MEDS ORDERED: FAMOTIDINE 20 MG TAB PO PRN (04:15)
[2019-07-30] MEDS ORDERED: ACETAMINOPHEN 500 MG TAB PO PRN (04:15)
[2019-07-30] MEDS ORDERED: CLOBETASOL PROPIONATE EMOLLIENT 0.05% CR 60 GM TOP PRN (04:15)
--- NOTE | 2019-07-30 04:17 | HPEPDOC ---
General Date of Admission 07/30/19 Date of Service: Jul 30, 2019 Chief Complaint The patient is a 69-year-old female admitted with a reason for visit of Chest Pain/Sob. Source: Patient Exam Limitations: No limitations Timing/Duration: Day(s) Severity: Moderate Associated Symptoms: Shortness of breath History of Present Illness Patient is 69 years old female with past medical history of hypertension, acid reflux, anxiety, depression, gastric bypass presented to the hospital with palp itations and shortness of breath on exertion. Patient stated that for past 2 days she has been having intermittent palpitations associated with shortness of breath on exertion. She stated that she has never had these symptoms before. Of note, patient around 4-5 days ago developed multiple episodes of diarrhea, resolved after 2 days. In emergency room patient was found to have new onset of atrial fibrillation on EKG with rapid ventricular rate around 150. Emergency room patient received IV Lopressor and flecainide. The heart rate became sinus with a rate around 60-70. Also patient was found to have elevated troponin 0.2, second troponin trended down. Patient denies fever, chills, nausea, vomiting, chest pain, diarrhea or dysuria Home Medications Scheduled Alendronate Sodium (Alendronate Sodium) 70 Mg Tab, 70 MG PO QWEEK, (Reported) FRIDAY Bupropion HCl (Bupropion Xl) 150 Mg Tab.er.24h, 150 MG PO DAILY, (Reported) Calcium Carbonate/Vitamin D3 (Calcium 600-Vit D3 200 Tablet) 1 Tab Tab, 1 TAB PO BID, (Reported) Diphenhydramine HCl (Benadryl) 25 Mg Capsule, 50 MG PO QHS, (Reported) Ergocalciferol (Vitamin D2) (Vitamin D2) 50,000 Units Cap, 50,000 UNITS PO 1XWK, (Reported) FRIDAY Ferrous Gluconate (Ferrous Gluconate) 324 Mg Tablet, 648 MG PO DAILY, (Reported) Gluc Green/Chondro Green A/Vit C/Mn (Glucosamine-Chondroitin Cap) 1 Cap Cap, 1 CAP PO DAILY, (Reported) Levothyroxine Sodium (Levothyroxine Sodium) 75 Mcg Tab, 75 MCG PO DAILY, (Reported) Losartan Potassium (Losartan Potassium) 50 Mg Tab, 50 MG PO DAILY, (Reported) Multivitamins (Thera M Plus Tablet) 1 Each Tablet, 1 TAB PO DAILY, (Reported) Scheduled PRN Acetaminophen (Tylenol Extra Strength) 500 Mg Tablet, 1,000 MG PO Q6H PRN for PAIN, (Reported) Acyclovir (Acyclovir) 400 Mg Tablet, 400 MG PO 5XD PRN for CORD SORES, (Reported) Clobetasol Propionate/Emoll (Clobetasol Emollient 0.05% Crm) 0.05% 15GM Cream..g., 1 DOSE TOP BID PRN for RASH, (Reported) USES ON GROIN NEEDED FOR RASH Naproxen Sodium (Aleve) 220 Mg Tablet, 440 MG PO DAILY PRN for PAIN, (Reported) Ranitidine HCl (Ranitidine HCl) 75 Mg Tab, 1 TAB PO BID PRN for ACID REFLUX, (Reported) Allergies Coded Allergies: Cephalosporins (Verified Adverse Reaction, Intermediate, nausea, 11/26/18) amoxicillin (Verified Adverse Reaction, Intermediate, nausea, 11/26/18) clavulanic acid (Verified Adverse Reaction, Intermediate, nausea, 11/26/18) Past Medical History Medical History Hypertension, GERD, gastric bypass, anxiety, depression Surgical History , gastric bypass surgery Family History Father was alcoholic, mother had [place] and stroke Social History * Smoker: former Smoker Alcohol: Denies Drugs: denies A-FIB/CHADSVASC A-FIB History Current/History of A-Fib/PAF?: Yes Current PO Anticoag Therapy: No Age/Risk Factor Scoring CHADSVASC: CHADSVASC Response (Comments) Value Age Risk Factor Age 65-74 years old 1 Gender Risk Factor Female 1 Hx of CHF Yes 1 Hx of HTN Yes 1 Total 4 Treatment Treatment ordered: Rivaroxaban Review of Systems Constitutional: Denies: Chills, Fever, Malaise Eyes: Denies: Pain ENT: Denies: Head Aches Skin: Denies: Rash, Lesions Pulmonary: Denies: Dyspnea Cardiovascular: Reports: Palpitations; Denies: Chest Pain Gastrointestinal: Denies: Nausea, Vomiting Genitourinary: Denies: Frequency Hematologic: Denies: Bruising Endocrine: Denies: Polydipsia Musculoskeletal: Denies: Neck Pain Neurological: Denies: Weakness, Numbness Psych: Reports: Mood Normal Physical Examination General Exam: Positive: Alert, Cooperative Eye Exam: Positive: PERRLA, Conjunctiva & lids normal ENT Exam: Positive: Atraumatic Neck Exam: Positive: Supple; Negative: JVD Chest Exam: Positive: Clear to auscultation Heart Exam: Positive: Rate Normal Telemetry: Positive: Sinus Abdomen Exam: Positive: Normal bowel sounds Extremity Exam: Negative: Clubbing, Cyanosis Skin Exam: Positive: Nl turgor and temperature Neuro Exam: Positive: Normal Gait, Strength at 5/5 X4 ext Psych Exam: Positive: Mental status NL Vital Signs Vital Signs Date Time Temp Pulse Resp B/P (MAP) Pulse Ox O2 Delivery O2 Flow Rate FiO2 07/30/19 02:23 71 18 96 Nasal Cannula 2.0 07/30/19 00:53 89/55 (66) 07/29/19 22:56 96.4 Laboratory Data Labs 24H Laboratory Tests 2 07/29/19 23:09: Immature Granulocyte % (Auto) 0.5, Neutrophils (%) (Auto) 81.9H, Lymphocytes (%) (Auto) 11.2L, Monocytes (%) (Auto) 6.2H, Eosinophils (%) (Auto) 0.0, Basophils (%) (Auto) 0.2, Neutrophils # (Auto) 10.7H, Lymphocytes # (Auto) 1.5, Monocytes # (Auto) 0.8, Eosinophils # (Auto) 0.0, Basophils # (Auto) 0.0, Nucleated Red Blood Cells % (auto) 0.0, Prothrombin Time 14.5H, Prothromb Time International Ratio 1.15, Activated Partial Thromboplast Time 31.5, Anion Gap 10, Glomerular Filtration Rate 53.3, Calcium Level 8.7L, Total Creatine Kinase 90, Creatine Kinase MB 5.5H, Creatine Kinase MB Relative Index 6.11H, Troponin I 1.27H, Thyroid Stimulating Hormone (TSH) 2.550, Free Thyroxine Index 4.7, Thyroxine (T4) 11.1, Triiodothyronine (T3) Uptake 42H 07/30/19 02:46: Total Creatine Kinase 74, Creatine Kinase MB 4.3H, Creatine Kinase MB Relative Index 5.81H, Troponin I 1.13H CBC/BMP Laboratory Tests 07/29/19 23:09 Assessment/Plan Patient is 69 years old female with past medical history of hypertension, acid reflux, anxiety, depression, gastric bypass presented to the hospital with palpitations and shortness of breath on exertion. Patient stated that for past 2 days she has been having intermittent palpitations associated with shortness of breath on exertion. She stated that she has never had these symptoms before. Of note, patient around 4-5 days ago developed multiple episodes of diarrhea, resolved after 2 days. In emergency room patient was found to have new onset of atrial fibrillation on EKG with rapid ventricular rate around 150. In Emergency room patient received IV Lopressor and flecainide. The heart rate became sinus with a rate around 60-70 Problems (1) Atrial fibrillation with rapid ventricular response Status: Acute Problem Text: New-onset of atrial fibrillation Continue beta jordi PO I will start anticoagulation Appreciate/agree with combination building inspector consult Echo Data Visualization Developer electrolytes (2) Elevated troponin Status: Acute Problem Text: Most likely demand ischemia Troponin trended down Continue aspirin, beta jordi Plan / VTE VTE Prophylaxis Ordered?: Yes REAL ROJO DO Jul 30, 2019 04:17
[2019-07-30 05:12] LABS: PHOSPHORUS LEVEL 2.2 MG/DL (2.5-4.9)
[2019-07-30] MEDS ORDERED: LEVOTHYROXINE 75MCG TABLET (0.075MG) PO SCH (06:00)
[2019-07-30 07:32] VITALS: BP 139/81
[2019-07-30 07:38] LABS: BASO % 0.1 % (0.0-1.0); HEMATOCRIT 39.2 % (36.0-47.0); HEMOGLOBIN 12.9 g/dl (12.0-15.5); LYMPH # 0.9 10^3/uL (1.5-5.0); LYMPH % 11.4 % (24.0-44.0); MEAN CORPUSCULAR HEMOGLOBIN 31.5 pg (27.0-33.0); MEAN CORPUSCULAR HGB CONC 32.9 g/dl (32.0-36.5); MEAN CORPUSCULAR VOLUME 95.6 fl (80.0-96.0); MONO # 0.7 10^3/uL (0.0-0.8); MONO % 8.3 % (0.0-5.0); NEUTROPHILS # 6.3 10^3/uL (1.5-8.5); NEUTROPHILS % 79.8 % (36.0-66.0); PLATELET COUNT, AUTOMATED 238 10^3/uL (150-450)
[2019-07-30 08:02] LABS: CALCIUM LEVEL 8.5 MG/DL (8.8-10.2); CK-MB VALUE MASS 3.8 NG/ML (<3.6); CREATININE FOR GFR 1.17 MG/DL (0.55-1.30); GLOMERULAR FILTRATION RATE 49.1 (>45); MAGNESIUM LEVEL 2.1 MG/DL (1.8-2.4); MB/CK RELATIVE INDEX 6.44 (< OR =4); POTASSIUM SERUM 3.8 MEQ/L (3.5-5.1); TROPONIN I 0.96 NG/ML (< 0.10)
[2019-07-30 08:07] VITALS: BP 126/65
--- NOTE | 2019-07-30 08:19 | REP ---
Portable chest x-ray: Single view. History: Dyspnea. Comparison study: October 10, 2018. Findings: Monitoring electrodes are seen. The lungs are symmetrically aerated and clear. Heart size is mildly prominent. There is a skin fold over the left lateral chest. Pleural angles are sharp. Vascular cephalization is seen. No pleural effusion. Impression: Cardiomegaly with cephalization. No pleural effusion or pulmonary edema seen. No focal infiltrate. Electronically Signed by Chad Zimmer MD 07/30/2019 08:11 A
[2019-07-30 08:52] LABS: CHOLESTEROL RISK RATIO 2.134 (<5)
[2019-07-30] MEDS ORDERED: FLECAINIDE 50MG TABLET PO SCH (09:00)
[2019-07-30] MEDS ORDERED: FERROUS GLUCONATE 324 MG TAB PO SCH (09:00)
[2019-07-30] MEDS ORDERED: HEPARIN SOD (PORCINE) 5000 UNITS/ML VIAL SC SCH (09:00)
[2019-07-30] MEDS ORDERED: MULTIVITAMINS/MINERALS THERAP 1 TAB PO SCH (09:00)
[2019-07-30] MEDS ORDERED: LOSARTAN 50 MG TAB PO SCH (09:00)
[2019-07-30] MEDS ORDERED: METOPROLOL TART 25 MG TABLET PO SCH (09:00)
[2019-07-30] MEDS ORDERED: buPROPion **XL** TABLET 150MG (WELLBUTRIN XL) PO SCH (09:00)
--- NOTE | 2019-07-30 09:30 | CR ---
DATE OF CONSULTATION: 07/30/2019 Mrs. Drew presented to [facility] Emergency Room ([facility] ER) yesterday evening with sensation of chest discomfort that was present for several hours during the day yesterday. Her ECG revealed atrial fibrillation with rapid ventricular response and repolarization abnormalities. She was given several medications that included aspirin, Plavix, and she also received metoprolol and flecainide. She converted to sinus rhythm, and this morning she reported her discomfort is completely gone and she has no specific complaints. She tells me that before this occurred yesterday she had several days of not feeling well, started on Friday when she had some nausea and vomiting and then during the week she had slowly progressive shortness of breath, intermittent sensation of brief palpitations. She never felt dizzy. There was no history of syncope or paroxysmal nocturnal dyspnea (PND) or orthopnea. Her cardiac enzymes were elevated on admission with troponin 1.2. It has been trending down. There has been no followup ECG performed as yet. PAST MEDICAL HISTORY: 1. Hypertension. 2. Gastroesophageal reflux disease (GERD). 3. Anxiety/depression. 4. Osteoporosis. SURGICAL HISTORY: Is positive for (C) section and bariatric surgery. OUTPATIENT MEDICATIONS: - alendronate 70 mg once a week - bupropion 150 mg a day - calcium with vitamin D3 - iron sulfate 324 a day - levothyroxine 75 a day - losartan 50 a day - multivitamin ALLERGIES: She reports ALLERGIES or intolerance to CEPHALOSPORINS, AMOXICILLIN, CLAVULANIC ACID. FAMILY HISTORY: Mother had a heart attack and stroke. SOCIAL HISTORY: The patient is , ex-smoker. No significant alcohol use. PHYSICAL EXAMINATION: Mrs. Drew is a pleasant 69-year-old female. Alert and oriented and appropriate. No distress. Blood pressure 126/65, heart rate has been 70s. She is afebrile. Saturation 97% on 2 liters. JVP is not up. I do not appreciate any carotid bruit. Lungs are clear. Good air movement. Heart: Exam reveals regular rhythm without gallop, rub, or murmur. Abdomen is obese but soft and nontender. Extremities are free of edema. Good peripheral pulses. Neurologically, she is intact. LABORATORIES: This morning, her basic metabolic panel is normal with exception of mild hyponatremia 134. Troponin is down to 0.96, and her CBC reveals hemoglobin 12.9, hematocrit 39, platelet count 238,000. Currently, she has been receiving Xarelto 10 mg daily and has not received dose yesterday or today, metoprolol 25 twice a day, iron, levothyroxine 75, famotidine. She did receive aspirin, clopidogrel, and flecainide last night. ASSESSMENT/PLAN: Mrs. Drew is a 69-year-old female who presents after brief illness that had a character of gastroenteritis initially. She was in atrial fibrillation with rapid ventricular response (RVR) associated with chest discomfort that, by her description, sounds typical for angina and has elevated troponin and repolarization abnormalities on ECG. I am going to obtain a followup ECG today, but I think that it is very likely that she has underlying coronary artery disease, even though demand ischemia and necrosis are certainly in differential diagnosis. I believe that she would be best served by proceeding with coronary angiography. That would provide a means of the most rapid diagnosis and potentially treatment. I spoke with patient about this plan, and she is in agreement. I will make a contact to interventional cardiology in [place], and we will attempt to arrange transfer.
[2019-07-30] MEDS ORDERED: METO1TAB87 PO (09:52)
--- NOTE | 2019-07-30 10:02 | DS.PDOC ---
Discharge Summary General Date of Admission Jul 30, 2019 at 03:58 Date of Discharge 07/30/2019 Discharge Summary PROCEDURES PERFORMED DURING STAY: [None]. ADMITTING DIAGNOSES / DISCHARGE DIAGNOSES: s/p A. fib with RVR NSTEMI s/p Leukocytosis Hyponatremia (mild) - improving Elevated glucose HTN Hypothyroidism Anxiety Depression GERD DVT prophylaxis COMPLICATIONS/CHIEF COMPLAINT: Chest pressure and palpitations HISTORY OF PRESENT ILLNESS / HOSPITAL COURSE: Patient is a 69-year-old female with a past medical history of hypertension, hypothyroidism, anxiety, depression, gastric bypass, and acid reflux who presented to the emergency room with complaints of chest pressure, palpitations, and shortness of breath. Patient initially thought that her symptoms are associated with indigestion, however, continued to persist with the day and she came to the ER for further evaluation. Upon arrival to emergency room, patient was found to be in A. fib with RVR with a heart rate of greater t nunez 150. Patient had received IV metoprolol and had reverted back to normal sinus rhythm. She was continued with metoprolol alone for heart rate control. Cardiology was called in consultation in the morning. Review of the EKG while in sinus rhythm revealed that the patient had evidence of ST segment depression in inferior leads suggesting ongoing ischemic disease. Patient initially had a troponin elevation that was down trending. , Highest was upon admission at 1.4. Subsequent follow-up at the lowest was at 0.9. Cardiology has discussed case with interventional cardiology at [facility] and patient has been accepted for transfer. Upon arrival patient was going to be started on flecainide by ER provider, however, this was never given since she had reverted to normal sinus rhythm with metoprolol alone. Patient was continued with metoprolol 50 twice a day for rate control and was also given a dose of aspirin 325 and Plavix 75. Plans to start Xarelto were initiated, however, this was discontinued once cardiac catheterization became a possibility. She did not receive any doses of Xarelto. I described the findings with the patient and advise him that there will be transferred to [facility] for further cardiac intervention. DISCHARGE MEDICATIONS: Please see below. ALLERGIES: Please see below. PHYSICAL EXAMINATION ON DISCHARGE: Vitals (See below) General: Lying in bed, no acute distress, comfortable, AAOx3 HEENT: NC, AT CVS: +S1S2 Lungs: Fair air entry b/l, no appreciable wheezing, rhonchi or rales Abdomen: Soft, ND, NT Extremities: - Edema, - Calf tenderness LABORATORY DATA: Please see below. ACTIVITY: [Bed rest. DISCHARGE PLAN: Transfer to [facility] for cardiac intervention under the care of Dr. Maddie Puga DISPOSITION: Transfer to [facility] for cardiac intervention DISCHARGE CONDITION: [Stable]. TIME SPENT ON DISCHARGE: 36 minutes Vital Signs/I&Os Vital Signs Date Time Temp Pulse Resp B/P (MAP) Pulse Ox O2 Delivery O2 Flow Rate FiO2 07/30/19 08:07 69 126/65 07/30/19 07:32 98.1 15 98 07/30/19 06:45 Nasal Cannula 2.0 Laboratory Data Labs 24H Laboratory Tests 2 07/29/19 23:09: Immature Granulocyte % (Auto) 0.5, Neutrophils (%) (Auto) 81.9H, Lymphocytes (%) (Auto) 11.2L, Monocytes (%) (Auto) 6.2H, Eosinophils (%) (Auto) 0.0, Basophils (%) (Auto) 0.2, Neutrophils # (Auto) 10.7H, Lymphocytes # (Auto) 1.5, Monocytes # (Auto) 0.8, Eosinophils # (Auto) 0.0, Basophils # (Auto) 0.0, Nucleated Red Blood Cells % (auto) 0.0, Prothrombin Time 14.5H, Prothromb Time International Ratio 1.15, Activated Partial Thromboplast Time 31.5, Anion Gap 10, Glomerular Filtration Rate 53.3, Calcium Level 8.7L, Total Creatine Kinase 90, Creatine Kinase MB 5.5H, Creatine Kinase MB Relative Index 6.11H, Troponin I 1.27H, Thyroid Stimulating Hormone (TSH) 2.550, Free Thyroxine Index 4.7, Thyroxine (T4) 11.1, Triiodothyronine (T3) Uptake 42H 07/30/19 02:46: Total Creatine Kinase 74, Creatine Kinase MB 4.3H, Creatine Kinase MB Relative Index 5.81H, Troponin I 1.13H, Phosphorus Level 2.2L, Magnesium Level 1.9 07/30/19 07:24: Immature Granulocyte % (Auto) 0.4, Neutrophils (%) (Auto) 79.8H, Lymphocytes (%) (Auto) 11.4L, Monocytes (%) (Auto) 8.3H, Eosinophils (%) (Auto) 0.0, Basophils (%) (Auto) 0.1, Neutrophils # (Auto) 6.3, Lymphocytes # (Auto) 0.9L, Monocytes # (Auto) 0.7, Eosinophils # (Auto) 0.0, Basophils # (Auto) 0.0, Nucleated Red Bl ood Cells % (auto) 0.0, Anion Gap 9, Glomerular Filtration Rate 49.1, Calcium Level 8.5L, Total Creatine Kinase 59, Creatine Kinase MB 3.8H, Creatine Kinase MB Relative Index 6.44H, Troponin I 0.96H, Magnesium Level 2.1, Triglycerides Level 76, Total Cholesterol 143, LDL Cholesterol 61, Non-HDL Cholesterol (LDL + VLDL) 76, Total HDL Cholesterol 67, Cholesterol/HDL Ratio 2.134 CBC/BMP Laboratory Tests 07/29/19 23:09 07/30/19 07:24 Discharge Medications Scheduled Alendronate Sodium (Alendronate Sodium) 70 Mg Tab, 70 MG PO QWEEK, (Reported) FRIDAY Bupropion HCl (Bupropion Xl) 150 Mg Tab.er.24h, 150 MG PO DAILY, (Reported) Calcium Carbonate/Vitamin D3 (Calcium 600-Vit D3 200 Tablet) 1 Tab Tab, 1 TAB PO BID, (Reported) Diphenhydramine HCl (Benadryl) 25 Mg Capsule, 50 MG PO QHS, (Reported) Ergocalciferol (Vitamin D2) (Vitamin D2) 50,000 Units Cap, 50,000 UNITS PO 1XWK, (Reported) FRIDAY Ferrous Gluconate (Ferrous Gluconate) 324 Mg Tablet, 648 MG PO DAILY, (Reported) Gluc Green/Chondro Green A/Vit C/Mn (Glucosamine-Chondroitin Cap) 1 Cap Cap, 1 CAP PO DAILY, (Reported) Levothyroxine Sodium (Levothyroxine Sodium) 75 Mcg Tab, 75 MCG PO DAILY, (Reported) Losartan Potassium (Losartan Potassium) 50 Mg Tab, 50 MG PO DAILY, (Reported) Metoprolol Tartrate (Metoprolol Tartrate) 25 Mg Tablet, 25 MG PO BID Multivitamins (Thera M Plus Tablet) 1 Each Tablet, 1 TAB PO DAILY, (Reported) Scheduled PRN Acetaminophen (Tylenol Extra Strength) 500 Mg Tablet, 1,000 MG PO Q6H PRN for PAIN, (Reported) Acyclovir (Acyclovir) 400 Mg Tablet, 400 MG PO 5XD PRN for CORD SORES, (Reported) Clobetasol Propionate/Emoll (Clobetasol Emollient 0.05% Crm) 0.05% 15GM Cream..g., 1 DOSE TOP BID PRN for RASH, (Reported) USES ON GROIN NEEDED FOR RASH Naproxen Sodium (Aleve) 220 Mg Tablet, 440 MG PO DAILY PRN for PAIN, (Reported) Ranitidine HCl (Ranitidine HCl) 75 Mg Tab, 1 TAB PO BID PRN for ACID REFLUX, (Reported) Allergies Coded Allergies: Cephalosporins (Verified Adverse Reaction, Intermediate, nausea, 11/26/18) amoxicillin (Verified Adverse Reaction, Intermediate, nausea, 11/26/18) clavulanic acid (Verified Adverse Reaction, Intermediate, nausea, 11/26/18) ANITA MARI MD Jul 30, 2019 10:02
--- NOTE | 2019-07-30 17:50 | ECGEPIP ---
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
[2019-07-30] MEDS ORDERED: RIVAROXABAN 10 MG TAB (XARELTO) PO SCH (18:00)
[2019-07-30] MEDS ORDERED: diphenhydrAMINE 25 MG CAP PO SCH (21:00)
--- NOTE | 2019-07-30 22:40 | ECGEPIP ---
[facility] - ED Test Date: 2019-07-29 Pat Name: ROSS CAMPOS Department: Room: [place] [address] Gender: Female Furnace Erector: harpreet : 1950 Requested By: SIMON ARITA Order Number: [id number] Reading MD: Mario Santiago Measurements Intervals [place] Rate: 82 P: 33 [place]: 162 QRS: 22 QRSD: 91 T: 176 QT: 453 QTc: 530 Interpretive Statements SINUS RHYTHM MARKED Anterior ST-T wave abnormalities not present on tracing done 07-30-16, consider ischemia Electronically Signed on 07-30-2019 22:39:49 EST by Mario Santiago
--- NOTE | 2019-07-30 22:41 | ECGEPIP ---
[facility] - ED Test Date: 2019-07-30 Pat Name: ROSS CAMPOS Department: Room: [place] [address] Gender: Female Ve Teacher: harpreet : 1950 Requested By: SIMON ARITA Order Number: [id number] Reading MD: Mario Santiago Measurements Intervals [place] Rate: 70 P: 47 [place]: 154 QRS: 23 QRSD: 90 T: 184 QT: 481 QTc: 522 Interpretive Statements SINUS RHYTHM ST DEVIATION AND MARKED T-WAVE ABNORMALITY, CONSIDER ANTEROLATERAL ISCHEMIA Not signficantly changed from tracing done 07-29-19 Electronically Signed on 07-30-2019 22:40:51 EST by Mario Santiago
== END 2019-07-30 10:39 | disposition short-term general hospital (02) | DRG 281 ==
LOC: M ED 22:54 → M ED INP 07-30 03:58 → M MSPAV 07-30 07:31
PROVIDERS: ADMIT Internal Medicine; ATTEND Internal Medicine
DX: I48.91 Unspecified atrial fibrillation (principal); I21.4 Non-ST elevation (NSTEMI) myocardial infarction; E87.1 Hypo-osmolality and hyponatremia; K21.9 Gastro-esophageal reflux disease without esophagitis; F41.9 Anxiety disorder, unspecified; F32.9 Major depressive disorder, single episode, unspecified; E03.9 Hypothyroidism, unspecified; I10 Essential (primary) hypertension; D72.829 Elevated white blood cell count, unspecified; R73.01 Impaired fasting glucose; Z79.899 Other long term (current) drug therapy; Z88.0 Allergy status to penicillin; Z88.8 Allergy status to other drugs, medicaments and biological substances; M81.0 Age-related osteoporosis without current pathological fracture

== ENCOUNTER → 2019-11-04 | Outpatient (REF) | payer MEDICARE ==
[~2019-11-04] MED LIST changes: +ACET-897 PO; +ACYC400T PO; +ALEV220T22 PO; +BENA25CA4 PO; +BUPR-365 PO; +CLOB0.0548 TOP; +DIPH25CA32 PO; +FERR32TA PO; +METO1TAB87 PO; -OMEP-172 PO; +OMEP1CAP73 PO; +VITMTA PO
[2019-11-04 13:19] LABS: HEMOGLOBIN 12.8 g/dl (12.0-15.5); MEAN CORPUSCULAR HEMOGLOBIN 32.2 pg (27.0-33.0); MEAN CORPUSCULAR HGB CONC 31.2 g/dl (32.0-36.5); PLATELET COUNT, AUTOMATED 216 10^3/uL (150-450); RED BLOOD COUNT 3.98 10^6/uL (4.00-5.40); WHITE BLOOD COUNT 4.2 10^3/uL (4.0-10.0)
[2019-11-04 13:32] LABS: ALBUMIN 3.9 GM/DL (3.2-5.2); ALT/SGPT 28 U/L (12-78); BILIRUBIN,TOTAL 0.3 MG/DL (0.2-1.0); BLOOD UREA NITROGEN 14 MG/DL (7-18); CALCIUM LEVEL 8.9 MG/DL (8.8-10.2); CARBON DIOXIDE LEVEL 30 MEQ/L (21-32); CHLORIDE LEVEL 104 MEQ/L (98-107); CHOLESTEROL LEVEL 216 MG/DL (<200); CHOLESTEROL RISK RATIO 2.322 (<5); CREATININE FOR GFR 0.79 MG/DL (0.55-1.30); FERRITIN 43 NG/ML (8-252); GLOMERULAR FILTRATION RATE > 60.0 (>45); GLUCOSE, FASTING 77 MG/DL (70-100); HDL CHOLESTEROL 93 MG/DL (>40); IRON (FE) 84 UG/DL (50-170); LDL CHOLESTEROL 111 MG/DL (<100); NON-HDL-C 123 MG/DL; PERCENT SATURATION 21.5 % (13.2-45.0); POTASSIUM SERUM 4.9 MEQ/L (3.5-5.1); SODIUM LEVEL 139 MEQ/L (136-145); TOTAL 25(OH) VITAMIN D 70.1 NG/ML (30.0-100.0); TOTAL IRON BINDING CAPACITY 390 UG/DL (250-450); TOTAL PROTEIN 6.9 GM/DL (6.4-8.2); TRIGLYCERIDES LEVEL 61 MG/DL (<150)
== END ==
LOC: M SFHCADAM 09:45
PROVIDERS: ATTEND Physician Assistant
DX: D50.9 Iron deficiency anemia, unspecified (principal); I10 Essential (primary) hypertension; E78.2 Mixed hyperlipidemia; E03.9 Hypothyroidism, unspecified; E55.9 Vitamin D deficiency, unspecified

== ENCOUNTER → 2019-11-04 | Outpatient (REF) | payer MEDICARE ==
[2019-11-04 13:25] LABS: CHOLESTEROL RISK RATIO 2.38 (<5)
[2019-11-04 13:28] LABS: HEMATOCRIT 40.4 % (36.0-47.0); MEAN CORPUSCULAR HEMOGLOBIN 33.1 pg (27.0-33.0); MEAN CORPUSCULAR HGB CONC 32.2 g/dl (32.0-36.5); MEAN CORPUSCULAR VOLUME 102.8 fl (80.0-96.0); PLATELET COUNT, AUTOMATED 221 10^3/uL (150-450); RED BLOOD COUNT 3.93 10^6/uL (4.00-5.40); WHITE BLOOD COUNT 4.4 10^3/uL (4.0-10.0)
== END ==
LOC: M LABDRWAD 12:53
PROVIDERS: ATTEND Nurse Practitioner Family
DX: I51.81 Takotsubo syndrome (principal)

== ENCOUNTER → 2019-12-21 | Outpatient (REF) | payer MEDICARE | LOC: M SFHCADAM 09:01 | PROVIDERS: ATTEND Physician Assistant | DX: E03.9 Hypothyroidism, unspecified (principal) ==

== ENCOUNTER → 2020-05-02 | Outpatient (REF) | payer MEDICARE ==
[2020-05-02 13:56] LABS: HEMATOCRIT 39.1 % (36.0-47.0); HEMOGLOBIN 12.4 g/dl (12.0-15.5); MEAN CORPUSCULAR HEMOGLOBIN 32.5 pg (27.0-33.0); MEAN CORPUSCULAR HGB CONC 31.7 g/dl (32.0-36.5); MEAN CORPUSCULAR VOLUME 102.6 fl (80.0-96.0); PLATELET COUNT, AUTOMATED 227 10^3/uL (150-450); RED BLOOD COUNT 3.81 10^6/uL (4.00-5.40); WHITE BLOOD COUNT 4.1 10^3/uL (4.0-10.0)
[2020-05-02 14:12] LABS: ALBUMIN 3.6 GM/DL (3.2-5.2); ALT/SGPT 24 U/L (12-78); BILIRUBIN,TOTAL 0.3 MG/DL (0.2-1.0); BLOOD UREA NITROGEN 15 MG/DL (7-18); CALCIUM LEVEL 8.6 MG/DL (8.8-10.2); CARBON DIOXIDE LEVEL 27 MEQ/L (21-32); CHLORIDE LEVEL 108 MEQ/L (98-107); CHOLESTEROL LEVEL 213 MG/DL (<200); CREATININE FOR GFR 0.62 MG/DL (0.55-1.30); FERRITIN 54 NG/ML (8-252); GLOMERULAR FILTRATION RATE > 60.0 (>45); GLUCOSE, FASTING 77 MG/DL (70-100); HDL CHOLESTEROL 93 MG/DL (>40); IRON (FE) 80 UG/DL (50-170); LDL CHOLESTEROL 108 MG/DL (<100); NON-HDL-C 120 MG/DL; PERCENT SATURATION 27.5 % (13.2-45.0); POTASSIUM SERUM 4.1 MEQ/L (3.5-5.1); SODIUM LEVEL 139 MEQ/L (136-145); TOTAL IRON BINDING CAPACITY 291 UG/DL (250-450); TOTAL PROTEIN 6.5 GM/DL (6.4-8.2); TRIGLYCERIDES LEVEL 59 MG/DL (<150)
== END ==
LOC: M LABDRWAD 12:41
PROVIDERS: ATTEND Physician Assistant
DX: D50.9 Iron deficiency anemia, unspecified (principal); I10 Essential (primary) hypertension; E78.2 Mixed hyperlipidemia; E03.9 Hypothyroidism, unspecified

== ENCOUNTER → 2020-10-31 | Outpatient (REF) | payer MEDICARE ==
[~2020-10-31] MED LIST changes: -ALEN70TA74 PO; +ALEN70TA82 PO; -LISI-538 PO; +LISI20TA33 PO
[2020-10-31 13:14] LABS: HEMATOCRIT 39.7 % (36.0-47.0); HEMOGLOBIN 12.6 g/dl (12.0-15.5); MEAN CORPUSCULAR HEMOGLOBIN 32.1 pg (27.0-33.0); MEAN CORPUSCULAR HGB CONC 31.7 g/dl (32.0-36.5); PLATELET COUNT, AUTOMATED 234 10^3/uL (150-450); RED BLOOD COUNT 3.93 10^6/uL (4.00-5.40); WHITE BLOOD COUNT 4.3 10^3/uL (4.0-10.0)
[2020-10-31 13:49] LABS: ALBUMIN 3.6 GM/DL (3.2-5.2); ALT/SGPT 23 U/L (12-78); BILIRUBIN,TOTAL 0.3 MG/DL (0.2-1.0); BLOOD UREA NITROGEN 13 MG/DL (7-18); CALCIUM LEVEL 8.8 MG/DL (8.8-10.2); CARBON DIOXIDE LEVEL 29 MEQ/L (21-32); CHLORIDE LEVEL 107 MEQ/L (98-107); CHOLESTEROL LEVEL 208 MG/DL (<200); CHOLESTEROL RISK RATIO 2.736 (<5); FERRITIN 73 NG/ML (8-252); GLOMERULAR FILTRATION RATE > 60.0 (>45); GLUCOSE, FASTING 84 MG/DL (70-100); HDL CHOLESTEROL 76 MG/DL (>40); IRON (FE) 77 UG/DL (50-170); LDL CHOLESTEROL 118 MG/DL (<100); NON-HDL-C 132 MG/DL; PERCENT SATURATION 26.7 % (13.2-45.0); POTASSIUM SERUM 4.8 MEQ/L (3.5-5.1); SODIUM LEVEL 140 MEQ/L (136-145); THYROID STIMULATING HORMONE 0.668 uIU/ML (0.358-3.740); TOTAL IRON BINDING CAPACITY 288 UG/DL (250-450); TOTAL PROTEIN 6.5 GM/DL (6.4-8.2); TRIGLYCERIDES LEVEL 68 MG/DL (<150)
== END ==
LOC: M SFHCADAM 08:16
PROVIDERS: ATTEND Physician Assistant
DX: D50.9 Iron deficiency anemia, unspecified (principal); I10 Essential (primary) hypertension; E78.2 Mixed hyperlipidemia; E03.9 Hypothyroidism, unspecified

== ENCOUNTER → 2021-05-11 | Outpatient (CLI) | payer MEDICARE ==
[~2021-05-11] MED LIST changes: +ACYC1TAB PO; -ACYC400T PO; +ERGO500029 PO
== END ==
LOC: M LABSMTC 10:19
PROVIDERS: ATTEND Pediatrics
DX: Z20.822 Contact with and (suspected) exposure to COVID-19 (principal)
CPT/HCPCS: C9803; U0003

== ENCOUNTER → 2021-06-13 | Outpatient (REF) | payer MEDICARE ==
[2021-06-13 13:20] LABS: HEMATOCRIT 39.1 % (36.0-47.0); HEMOGLOBIN 12.3 g/dl (12.0-15.5); MEAN CORPUSCULAR HEMOGLOBIN 31.8 pg (27.0-33.0); MEAN CORPUSCULAR HGB CONC 31.5 g/dl (32.0-36.5); PLATELET COUNT, AUTOMATED 236 10^3/uL (150-450); RED BLOOD COUNT 3.87 10^6/uL (4.00-5.40); WHITE BLOOD COUNT 4.9 10^3/uL (4.0-10.0)
[2021-06-13 14:00] LABS: ALBUMIN 3.5 GM/DL (3.2-5.2); ALT/SGPT 22 U/L (12-78); BILIRUBIN,TOTAL 0.3 MG/DL (0.2-1.0); BLOOD UREA NITROGEN 19 MG/DL (7-18); CALCIUM LEVEL 9.2 MG/DL (8.8-10.2); CARBON DIOXIDE LEVEL 28 MEQ/L (21-32); CHLORIDE LEVEL 109 MEQ/L (98-107); CHOLESTEROL LEVEL 238 MG/DL (<200); CHOLESTEROL RISK RATIO 3.173 (<5); CREATININE FOR GFR 0.69 MG/DL (0.55-1.30); FERRITIN 63 NG/ML (8-252); GLOMERULAR FILTRATION RATE > 60.0 (>45); GLUCOSE, FASTING 91 MG/DL (70-100); HDL CHOLESTEROL 75 MG/DL (>40); LDL CHOLESTEROL 138 MG/DL (<100); NON-HDL-C 163 MG/DL; POTASSIUM SERUM 4.5 MEQ/L (3.5-5.1); SODIUM LEVEL 141 MEQ/L (136-145); TOTAL PROTEIN 6.7 GM/DL (6.4-8.2); TRIGLYCERIDES LEVEL 127 MG/DL (<150)
[2021-06-13 14:01] LABS: TOTAL 25(OH) VITAMIN D 64.7 NG/ML (30.0-100.0)
== END ==
LOC: M SFHCADAM 08:52
PROVIDERS: ATTEND Physician Assistant
DX: D50.9 Iron deficiency anemia, unspecified (principal); I10 Essential (primary) hypertension; E78.2 Mixed hyperlipidemia; E03.9 Hypothyroidism, unspecified; E55.9 Vitamin D deficiency, unspecified

== ENCOUNTER → 2021-07-09 | Outpatient (CLI) | payer MEDICARE ==
[~2021-07-09] MED LIST changes: +LOSA50TA28 PO; -LOSA50TA88 PO
== END ==
LOC: M SLEEP 20:00
PROVIDERS: ATTEND Nurse Practitioner Family
DX: R06.83 Snoring (principal)

== ENCOUNTER → 2021-11-08 | Outpatient (REF) | payer MEDICARE ==
[2021-11-08 12:33] LABS: HEMATOCRIT 38.8 % (36.0-47.0); HEMOGLOBIN 12.3 g/dl (12.0-15.5); MEAN CORPUSCULAR HEMOGLOBIN 31.6 pg (27.0-33.0); MEAN CORPUSCULAR HGB CONC 31.7 g/dl (32.0-36.5); MEAN CORPUSCULAR VOLUME 99.7 fl (80.0-96.0); PLATELET COUNT, AUTOMATED 216 10^3/uL (150-450); RED BLOOD COUNT 3.89 10^6/uL (4.00-5.40); WHITE BLOOD COUNT 4.6 10^3/uL (4.0-10.0)
[2021-11-08 13:54] LABS: ALBUMIN 3.8 GM/DL (3.2-5.2); ALT/SGPT 22 U/L (12-78); BILIRUBIN,TOTAL 0.4 MG/DL (0.2-1.0); BLOOD UREA NITROGEN 18 MG/DL (7-18); CALCIUM LEVEL 8.4 MG/DL (8.8-10.2); CARBON DIOXIDE LEVEL 26 MEQ/L (21-32); CHLORIDE LEVEL 107 MEQ/L (98-107); CHOLESTEROL LEVEL 205 MG/DL (<200); CHOLESTEROL RISK RATIO 2.847 (<5); CREATININE FOR GFR 0.71 MG/DL (0.55-1.30); FERRITIN 62 NG/ML (8-252); GLOMERULAR FILTRATION RATE > 60.0 (>45); GLUCOSE, FASTING 89 MG/DL (70-100); HDL CHOLESTEROL 72 MG/DL (>40); IRON (FE) 62 UG/DL (50-170); LDL CHOLESTEROL 119 MG/DL (<100); NON-HDL-C 133 MG/DL; PERCENT SATURATION 20.4 % (13.2-45.0); POTASSIUM SERUM 4.3 MEQ/L (3.5-5.1); SODIUM LEVEL 139 MEQ/L (136-145); TOTAL IRON BINDING CAPACITY 304 UG/DL (250-450); TOTAL PROTEIN 6.5 GM/DL (6.4-8.2); TRIGLYCERIDES LEVEL 69 MG/DL (<150)
== END ==
LOC: M SFHCPLAZ 08:37
PROVIDERS: ATTEND Physician Assistant
DX: D50.9 Iron deficiency anemia, unspecified (principal); I10 Essential (primary) hypertension; E78.2 Mixed hyperlipidemia; E55.9 Vitamin D deficiency, unspecified; E03.9 Hypothyroidism, unspecified

== ENCOUNTER → 2022-05-08 | Outpatient (REF) | payer MEDICARE ==
[2022-05-08 14:03] LABS: ALBUMIN 3.7 GM/DL (3.2-5.2); ALT/SGPT 19 U/L (12-78); BILIRUBIN,TOTAL 0.3 MG/DL (0.2-1.0); BLOOD UREA NITROGEN 11 MG/DL (7-18); CARBON DIOXIDE LEVEL 28 MEQ/L (21-32); CHLORIDE LEVEL 107 MEQ/L (98-107); CHOLESTEROL LEVEL 241 MG/DL (<200); CHOLESTEROL RISK RATIO 2.869 (<5); CREATININE FOR GFR 0.75 MG/DL (0.55-1.30); GLOMERULAR FILTRATION RATE > 60.0 (>45); GLUCOSE, FASTING 91 MG/DL (70-100); HDL CHOLESTEROL 84 MG/DL (>40); LDL CHOLESTEROL 134 MG/DL (<100); NON-HDL-C 157 MG/DL; SODIUM LEVEL 139 MEQ/L (136-145); TOTAL PROTEIN 6.7 GM/DL (6.4-8.2); TRIGLYCERIDES LEVEL 114 MG/DL (<150)
== END ==
LOC: M SFHCADAM 08:14
PROVIDERS: ATTEND Physician Assistant
DX: I10 Essential (primary) hypertension (principal); E78.2 Mixed hyperlipidemia; E55.9 Vitamin D deficiency, unspecified; E03.9 Hypothyroidism, unspecified

== ENCOUNTER → 2022-05-23 | Outpatient (CLI) | payer MEDICARE | LOC: M WHC 11:04 | PROVIDERS: ATTEND Physician Assistant | DX: Z12.31 Encounter for screening mammogram for malignant neoplasm of breast (principal); M81.0 Age-related osteoporosis without current pathological fracture ==

== ENCOUNTER → 2022-05-29 | Outpatient (REF) | payer MEDICARE | LOC: M SFHCADAM 12:46 | PROVIDERS: ATTEND Physician Assistant | DX: R05.1 Acute cough (principal) ==

== ENCOUNTER → 2022-08-20 | Outpatient (REF) | payer MEDICARE ==
[~2022-08-20] MED LIST changes: +DIPH-435 PO; -DIPH25CA32 PO
[2022-08-20 14:23] LABS: VITAMIN B12 LEVEL 220 PG/ML (211-911)
[2022-08-20 14:24] LABS: ALBUMIN 3.6 G/DL (3.2-5.2); ALKALINE PHOSPHATASE 65 U/L (46-116); ALT/SGPT 29 U/L (7.0-40); AST/SGOT 28 U/L (<34); BILIRUBIN,TOTAL 0.3 MG/DL (0.3-1.2); BLOOD UREA NITROGEN 15 MG/DL (9-23); CARBON DIOXIDE LEVEL 27 MMOL/L (20-31); CHLORIDE LEVEL 105 MMOL/L (98-107); CHOLESTEROL LEVEL 154 MG/DL (<200); CHOLESTEROL RISK RATIO 1.99 (<5); CREATININE FOR GFR 0.72 MG/DL (0.55-1.30); GLOMERULAR FILTRATION RATE > 60.0 (>39); GLUCOSE, FASTING 82 MG/DL (74-106); HDL CHOLESTEROL 77.3 MG/DL (>40); LDL CHOLESTEROL 65.7 MG/DL (<100); NON-HDL-C 77 MG/DL; SODIUM LEVEL 141 MMOL/L (136-145); TOTAL PROTEIN 6.1 G/DL (5.7-8.2); TRIGLYCERIDES LEVEL 55 MG/DL (<150)
[2022-08-20 14:29] LABS: FOLATE > 24.0 NG/ML (>5.4)
== END ==
LOC: M SFHCADAM 07:33
PROVIDERS: ATTEND Physician Assistant
DX: E78.2 Mixed hyperlipidemia (principal); Z98.84 Bariatric surgery status

== ENCOUNTER → 2022-11-14 | Outpatient (REF) | payer MEDICARE ==
[2022-11-14 16:38] LABS: FOLATE 23.1 NG/ML (>5.4)
== END ==
LOC: M SFHCADAM 15:01
PROVIDERS: ATTEND Physician Assistant
DX: E53.8 Deficiency of other specified B group vitamins (principal)

== ENCOUNTER → 2022-11-14 | Outpatient (CLI) | payer MEDICARE | LOC: M ADAMS 15:02 | PROVIDERS: ATTEND Physician Assistant Medical | DX: M17.12 Unilateral primary osteoarthritis, left knee (principal) ==

== ENCOUNTER → 2022-12-11 | Outpatient (REF) | payer MEDICARE ==
[2022-12-11 13:22] LABS: HEMATOCRIT 38.4 % (36.0-47.0); HEMOGLOBIN 12.2 g/dl (12.0-15.5); MEAN CORPUSCULAR HEMOGLOBIN 32.2 pg (27.0-33.0); MEAN CORPUSCULAR HGB CONC 31.8 g/dl (32.0-36.5); MEAN CORPUSCULAR VOLUME 101.3 fl (80.0-96.0); PLATELET COUNT, AUTOMATED 272 10^3/uL (150-450); RED BLOOD COUNT 3.79 10^6/uL (4.00-5.40); WHITE BLOOD COUNT 4.6 10^3/uL (4.0-10.0)
[2022-12-11 13:25] LABS: BLOOD UREA NITROGEN 14 MG/DL (9-23); CALCIUM LEVEL 8.7 MG/DL (8.3-10.6); CARBON DIOXIDE LEVEL 29 MMOL/L (20-31); CHLORIDE LEVEL 104 MMOL/L (98-107); CREATININE FOR GFR 0.71 MG/DL (0.55-1.30); GLOMERULAR FILTRATION RATE > 60.0 (>39); GLUCOSE, FASTING 94 MG/DL (74-106); POTASSIUM SERUM 4.8 MMOL/L (3.5-5.1); SODIUM LEVEL 138 MMOL/L (136-145)
== END ==
LOC: M LABDRWAD 12:43
PROVIDERS: ATTEND Nurse Practitioner Family
DX: I48.0 Paroxysmal atrial fibrillation (principal)

== ENCOUNTER → 2023-01-28 | Outpatient (CLI) | payer MEDICARE | LOC: M RAD 09:58 | PROVIDERS: ATTEND Orthopaedic Surgery | DX: M79.662 Pain in left lower leg (principal) ==

== ENCOUNTER → 2023-07-07 | Outpatient (CLI) | payer MEDICARE ==
[2023-07-07 09:49] LABS: HEMATOCRIT 37.4 % (36.0-47.0); HEMOGLOBIN 11.9 g/dl (12.0-15.5); MEAN CORPUSCULAR HEMOGLOBIN 31.7 pg (27.0-33.0); MEAN CORPUSCULAR HGB CONC 31.8 g/dl (32.0-36.5); MEAN CORPUSCULAR VOLUME 99.7 fl (80.0-96.0); PLATELET COUNT, AUTOMATED 228 10^3/uL (150-450); RED BLOOD COUNT 3.75 10^6/uL (4.00-5.40); WHITE BLOOD COUNT 4.1 10^3/uL (4.0-10.0)
[2023-07-07 10:01] LABS: INR 1.22
[2023-07-07 10:08] LABS: ALBUMIN 3.6 G/DL (3.2-5.2); ALKALINE PHOSPHATASE 58 U/L (46-116); ALT/SGPT 30 U/L (7.0-40); AST/SGOT 25 U/L (<34); BILIRUBIN,TOTAL 0.3 MG/DL (0.3-1.2); BLOOD UREA NITROGEN 13 MG/DL (9-23); CALCIUM LEVEL 9.1 MG/DL (8.3-10.6); CARBON DIOXIDE LEVEL 26 MMOL/L (20-31); CHLORIDE LEVEL 105 MMOL/L (98-107); CREATININE FOR GFR 0.67 MG/DL (0.55-1.30); GLOMERULAR FILTRATION RATE > 60.0 (>39); GLUCOSE, FASTING 90 MG/DL (74-106); POTASSIUM SERUM 4.7 MMOL/L (3.5-5.1); SODIUM LEVEL 140 MMOL/L (136-145); TOTAL PROTEIN 6.4 G/DL (5.7-8.2)
[2023-07-07 10:18] LABS: ERYTHROCYTE SEDIMENTATION RATE 36 mm/hr (0-30)
== END ==
LOC: M RAD 08:30
PROVIDERS: ATTEND Orthopaedic Surgery
DX: Z01.818 Encounter for other preprocedural examination (principal); Z79.01 Long term (current) use of anticoagulants

== ENCOUNTER → 2023-08-29 | Outpatient (CLI) | payer MEDICARE ==
[2023-08-29 16:17] LABS: BASO # 0.1 10^3/uL (0.0-0.2); BASO % 1.1 % (0.0-1.0); EOS % 0.7 % (0.0-3.0); HEMOGLOBIN 10.6 g/dl (12.0-15.5); LYMPH # 1.6 10^3/uL (1.5-5.0); LYMPH % 29.9 % (24.0-44.0); MEAN CORPUSCULAR HEMOGLOBIN 31.4 pg (27.0-33.0); MEAN CORPUSCULAR HGB CONC 31.2 g/dl (32.0-36.5); MEAN CORPUSCULAR VOLUME 100.6 fl (80.0-96.0); MONO # 0.5 10^3/uL (0.0-0.8); MONO % 9.7 % (2.0-8.0); NEUTROPHILS # 3.1 10^3/uL (1.5-8.5); NEUTROPHILS % 58.4 % (36.0-66.0); PLATELET COUNT, AUTOMATED 319 10^3/uL (150-450); RED BLOOD COUNT 3.38 10^6/uL (4.00-5.40); WHITE BLOOD COUNT 5.4 10^3/uL (4.0-10.0)
[2023-08-29 16:34] LABS: ERYTHROCYTE SEDIMENTATION RATE 59 mm/hr (0-30)
== END ==
LOC: M PLALAB 12:09
PROVIDERS: ATTEND Physician Assistant Surgical
DX: Z96.652 Presence of left artificial knee joint (principal)

== ENCOUNTER → 2023-08-29 | Outpatient (CLI) | payer MEDICARE | LOC: M WHC 12:04 | PROVIDERS: ATTEND Physician Assistant Surgical | DX: M25.562 Pain in left knee (principal); Z96.652 Presence of left artificial knee joint; R22.42 Localized swelling, mass and lump, left lower limb ==

== ENCOUNTER → 2023-11-14 | Outpatient (REF) | payer MEDICARE ==
[2023-11-14 13:30] LABS: HEMATOCRIT 39.7 % (36.0-47.0); HEMOGLOBIN 12.6 g/dl (12.0-15.5); MEAN CORPUSCULAR HEMOGLOBIN 30.4 pg (27.0-33.0); MEAN CORPUSCULAR HGB CONC 31.7 g/dl (32.0-36.5); MEAN CORPUSCULAR VOLUME 95.9 fl (80.0-96.0); PLATELET COUNT, AUTOMATED 253 10^3/uL (150-450); RED BLOOD COUNT 4.14 10^6/uL (4.00-5.40); WHITE BLOOD COUNT 4.2 10^3/uL (4.0-10.0)
[2023-11-14 13:57] LABS: ALBUMIN 3.9 G/DL (3.2-5.2); ALKALINE PHOSPHATASE 61 U/L (46-116); ALT/SGPT 27 U/L (7.0-40); AST/SGOT 24 U/L (<34); BILIRUBIN,TOTAL 0.4 MG/DL (0.3-1.2); BLOOD UREA NITROGEN 13 MG/DL (9-23); CALCIUM LEVEL 9.5 MG/DL (8.3-10.6); CARBON DIOXIDE LEVEL 27 MMOL/L (20-31); CHLORIDE LEVEL 98 MMOL/L (98-107); CREATININE FOR GFR 0.58 MG/DL (0.55-1.30); FERRITIN 68.4 NG/ML (7.3-270.7); GLOMERULAR FILTRATION RATE > 60.0 (>39); GLUCOSE, FASTING 88 MG/DL (74-106); IRON (FE) 67 UG/DL (50-170); PERCENT SATURATION 20.9 % (13.2-45.0); POTASSIUM SERUM 4.8 MMOL/L (3.5-5.1); SODIUM LEVEL 131 MMOL/L (136-145); TOTAL IRON BINDING CAPACITY 320 UG/DL (250-425); TOTAL PROTEIN 6.6 G/DL (5.7-8.2)
[2023-11-14 14:05] LABS: ATYPICAL LYMPH 3 % (0-5); LYMPHOCYTES 43 % (16-44); MONOCYTES 13 % (0-5); NEUTROPHILS 41 % (28-66); PLATELET ESTIMATE NORMAL (NORMAL)
[2023-11-14 14:06] LABS: ANISOCYTOSIS 1+
== END ==
LOC: M SFHCADAM 08:21
PROVIDERS: ATTEND Physician Assistant
DX: D64.9 Anemia, unspecified (principal); I48.0 Paroxysmal atrial fibrillation; I10 Essential (primary) hypertension

== ENCOUNTER → 2024-05-26 | Outpatient (REF) | payer MEDICARE ==
[2024-05-26 13:22] LABS: BASO # 0.1 10^3/uL (0.0-0.2); BASO % 1.5 % (0.0-1.0); EOS # 0.1 10^3/uL (0.0-0.5); EOS % 2.3 % (0.0-3.0); HEMATOCRIT 35.5 % (36.0-47.0); HEMOGLOBIN 11.3 g/dl (12.0-15.5); LYMPH # 1.4 10^3/uL (1.5-5.0); LYMPH % 36.3 % (24.0-44.0); MEAN CORPUSCULAR HEMOGLOBIN 32.1 pg (27.0-33.0); MEAN CORPUSCULAR HGB CONC 31.8 g/dl (32.0-36.5); MEAN CORPUSCULAR VOLUME 100.9 fl (80.0-96.0); MONO # 0.4 10^3/uL (0.0-0.8); MONO % 8.9 % (2.0-8.0); NEUTROPHILS % 50.7 % (36.0-66.0); PLATELET COUNT, AUTOMATED 227 10^3/uL (150-450); RED BLOOD COUNT 3.52 10^6/uL (4.00-5.40); WHITE BLOOD COUNT 3.9 10^3/uL (4.0-10.0)
[2024-05-26 13:54] LABS: ALBUMIN 3.6 G/DL (3.2-5.2); ALKALINE PHOSPHATASE 65 U/L (46-116); ALT/SGPT 30 U/L (7.0-40); AST/SGOT 22 U/L (<34); BILIRUBIN,TOTAL 0.4 MG/DL (0.3-1.2); BLOOD UREA NITROGEN 13 MG/DL (9-23); CALCIUM LEVEL 9.2 MG/DL (8.3-10.6); CARBON DIOXIDE LEVEL 27 MMOL/L (20-31); CHLORIDE LEVEL 107 MMOL/L (98-107); CHOLESTEROL LEVEL 140 MG/DL (<200); CHOLESTEROL RISK RATIO 1.82 (<5); CREATININE FOR GFR 0.72 MG/DL (0.55-1.30); FOLATE > 24.0 NG/ML (>5.4); FREE T4 1.76 NG/DL (0.89-1.76); GLOMERULAR FILTRATION RATE > 60.0 (>39); GLUCOSE, FASTING 85 MG/DL (74-106); HDL CHOLESTEROL 76.7 MG/DL (>40); LDL CHOLESTEROL 53.3 MG/DL (<100); NON-HDL-C 63.3 MG/DL; POTASSIUM SERUM 4.4 MMOL/L (3.5-5.1); SODIUM LEVEL 139 MMOL/L (136-145); THYROID STIMULATING HORMONE 1.819 uIU/ML (0.55-4.78); TOTAL 25(OH) VITAMIN D 45.3 NG/ML (20.0-100.0); TOTAL PROTEIN 6.3 G/DL (5.7-8.2); TRIGLYCERIDES LEVEL 50 MG/DL (<150); VITAMIN B12 LEVEL 977 PG/ML (211-911)
[2024-05-26 14:20] LABS: CREATININE, URINE 142.3 MG/DL
[2024-05-26 14:49] LABS: HEMOGLOBIN A1c 5.3 % (4.0-6.0)
[2024-05-26 16:59] LABS: MAU/CREAT RATIO 0.1 MCG/MG (0.0-30.0)
== END ==
LOC: M SFHCADAM 08:11
PROVIDERS: ATTEND Physician Assistant
DX: B02.29 Other postherpetic nervous system involvement (principal); Z96.652 Presence of left artificial knee joint; Z98.84 Bariatric surgery status; I48.0 Paroxysmal atrial fibrillation; E03.9 Hypothyroidism, unspecified; I10 Essential (primary) hypertension; E55.9 Vitamin D deficiency, unspecified; G47.33 Obstructive sleep apnea (adult) (pediatric); E53.8 Deficiency of other specified B group vitamins; Z79.899 Other long term (current) drug therapy

== ENCOUNTER → 2025-05-12 | Outpatient (CLI) | payer MEDICARE ==
[~2025-05-12] MED LIST changes: +ACYC-438 PO; -ACYC1TAB PO; +BUPR150T15 PO; -BUPR1TAB53 PO
== END ==
LOC: M WHC 09:48
PROVIDERS: ATTEND Physician Assistant
DX: Z12.31 Encounter for screening mammogram for malignant neoplasm of breast (principal); M81.0 Age-related osteoporosis without current pathological fracture

== ENCOUNTER → 2025-05-31 | Outpatient (REF) | payer MEDICARE ==
[2025-05-31 13:02] LABS: PLATELET COUNT, AUTOMATED 221 10^3/uL (150-450)
[2025-05-31 13:04] LABS: FREE T4 1.40 NG/DL (0.89-1.76)
[2025-05-31 13:07] LABS: ALT/SGPT 25 U/L (7.0-40); AST/SGOT 22 U/L (<34); CALCIUM LEVEL 8.7 MG/DL (8.3-10.6); CARBON DIOXIDE LEVEL 27 MMOL/L (20-31); CHLORIDE LEVEL 105 MMOL/L (98-107); CHOLESTEROL LEVEL 149 MG/DL (<200); CHOLESTEROL RISK RATIO 1.97 (<5); CREATININE FOR GFR 0.62 MG/DL (0.55-1.30); GLOMERULAR FILTRATION RATE > 90.0 (>39); LDL CHOLESTEROL 61.7 MG/DL (<100); NON-HDL-C 73.7 MG/DL; POTASSIUM SERUM 4.5 MMOL/L (3.5-5.1); SODIUM LEVEL 141 MMOL/L (136-145); TRIGLYCERIDES LEVEL 60 MG/DL (<150)
[2025-05-31 13:11] LABS: ESTIMATED AVERAGE GLUCOSE 105.0 MG/DL (60-110)
== END ==
LOC: M SFHCADAM 07:48
PROVIDERS: ATTEND Physician Assistant
DX: M81.0 Age-related osteoporosis without current pathological fracture (principal); I10 Essential (primary) hypertension; I48.0 Paroxysmal atrial fibrillation; E78.2 Mixed hyperlipidemia; Z12.31 Encounter for screening mammogram for malignant neoplasm of breast; F33.1 Major depressive disorder, recurrent, moderate; K21.9 Gastro-esophageal reflux disease without esophagitis; Z79.899 Other long term (current) drug therapy

== ENCOUNTER → 2025-06-03 | Outpatient (REF) | payer MEDICARE ==
[2025-06-03 14:29] LABS: BASO # 0.1 10^3/uL (0.0-0.2); BASO % 1.4 % (0.0-1.0); EOS # 0.1 10^3/uL (0.0-0.5); EOS % 1.1 % (0.0-3.0); LYMPH # 1.6 10^3/uL (1.5-5.0); LYMPH % 36.6 % (24.0-44.0); MONO # 0.5 10^3/uL (0.0-0.8); MONO % 10.5 % (2.0-8.0); NEUTROPHILS # 2.2 10^3/uL (1.5-8.5); NEUTROPHILS % 50.4 % (36.0-66.0); PLATELET COUNT, AUTOMATED 249 10^3/uL (150-450)
[2025-06-03 14:32] LABS: IRON (FE) 61.0 UG/DL (50-170); PERCENT SATURATION 20.0 % (13.2-45.0)
== END ==
LOC: M SFHCDERM 10:25
PROVIDERS: ATTEND Physician Assistant
DX: D72.819 Decreased white blood cell count, unspecified (principal); D64.9 Anemia, unspecified